=== PATIENT | female | born 1940 | race Caucasian/White ===

== ENCOUNTER → 2020-08-18 09:29 | Outpatient (BNVA) | payer MEDICARE, OTHER, SELFPAY | PROVIDERS: PCP Internal Medicine; Visit Provider Hospitalist | DX: J44.9 Chronic obstructive pulmonary disease, unspecified (principal); G47.33 Obstructive sleep apnea (adult) (pediatric); M54.5 Low back pain; Z99.89 Dependence on other enabling machines and devices | CPT/HCPCS: 99212 ==

== ENCOUNTER → 2021-08-19 08:59 | Outpatient (BNVA) | payer MEDICARE, OTHER, SELFPAY | PROVIDERS: PCP Internal Medicine; Visit Provider Hospitalist | DX: Z23 Encounter for immunization (principal); J44.9 Chronic obstructive pulmonary disease, unspecified; G47.33 Obstructive sleep apnea (adult) (pediatric); M54.50 Low back pain, unspecified; Z99.89 Dependence on other enabling machines and devices | CPT/HCPCS: 90471; 90732; 99212 ==

== ENCOUNTER → 2021-11-11 12:42 | Outpatient (BNVA) | payer MEDICARE, OTHER, SELFPAY | PROVIDERS: PCP Internal Medicine; Visit Provider Hospitalist | DX: R06.00 Dyspnea, unspecified (principal); J44.9 Chronic obstructive pulmonary disease, unspecified; G47.33 Obstructive sleep apnea (adult) (pediatric); M54.50 Low back pain, unspecified; Z99.89 Dependence on other enabling machines and devices | CPT/HCPCS: 94618; 99212 ==

== ENCOUNTER 2021-11-22 09:48 | Outpatient (REF) | payer MEDICARE, OTHER, SELFPAY ==
[2021-11-22 10:17] LABS: MANUAL DIFF FLAG NO
[2021-11-22 10:31] LABS: Basophils Percent Auto 0.8 % (0-2); Eosinophils Absolute Auto 0.4 X10*3/uL (0.0-0.4); Eosinophils Percent Auto 7.2 % (0-4); Hematocrit 38.8 % (37.0-47.0); Hemoglobin 12.3 g/dl (12.0-16.0); Imm Gran Abs Auto 0.01 X10*3/uL (0.00-0.03); Imm Gran Pct Auto 0.2 % (0.0-0.4); Lymphocytes Absolute Auto 0.9 X10*3/uL (1.2-4.9); Lymphocytes Percent Auto 18.8 % (20-40); Mean Corpuscular HGB Conc 31.7 g/dl (31.0-35.0); Mean Platelet Volume 10.9 fL (9.4-12.3); Monocytes Absolute Auto 0.3 X10*3/uL (0.1-1.2); Neutrophils Absolute Auto 3.2 x10*3/uL (2.0-8.3); Platelet Count 231 X10*3/uL (160-400); Red Blood Count 3.84 X10*6/uL (4.20-5.50); Red Cell Distribution Width 13.9 % (11.0-16.0); White Blood Count 4.9 X10*3/uL (4.8-10.8)
[2021-11-22 11:24] LABS: Erythrocyte Sedimentation Rate 10 MM/HR (0-20)
== END 2021-11-22 09:49 | disposition home or self-care (01) ==
LOC: HO.LAB 09:48
PROVIDERS: PCP Internal Medicine; Visit Provider Hospitalist
DX: R06.00 Dyspnea, unspecified (principal); Z91.09 Other allergy status, other than to drugs and biological substances
CPT/HCPCS: 36415; 82785; 85025; 85652; 86003

== ENCOUNTER 2021-12-03 09:43 | Outpatient (REF) | payer MEDICARE, OTHER, SELFPAY ==
--- NOTE | 2021-12-03 11:55 | PFT_ITS ---
Forced vital capacity 76%, FEV1 83%, FEF 25-75, 123% and MVV is 72%. Post bronchodilator therapy, there is no change. Total lung capacity 77%. Residual volume is 73%. Diffusion capacity 66%. CONCLUSION: There is evidence of mild restrictive pulmonary disorder. No obstructive airway disorder. No response to bronchodilator therapy. MD CEDRIC Davis/CECIL / [id number]
== END 2021-12-03 09:44 | disposition home or self-care (01) ==
LOC: HO.RESP 09:43
PROVIDERS: PCP Internal Medicine; Visit Provider Hospitalist
DX: J44.9 Chronic obstructive pulmonary disease, unspecified (principal)
CPT/HCPCS: 94060; 94727; 94729

== ENCOUNTER → 2021-12-10 13:11 | Outpatient (BNVA) | payer MEDICARE, OTHER, SELFPAY | PROVIDERS: PCP Internal Medicine; Visit Provider Hospitalist | DX: J44.9 Chronic obstructive pulmonary disease, unspecified (principal); R06.00 Dyspnea, unspecified; G47.33 Obstructive sleep apnea (adult) (pediatric); M54.50 Low back pain, unspecified; Z79.899 Other long term (current) drug therapy; Z99.89 Dependence on other enabling machines and devices | CPT/HCPCS: 99212 ==

== ENCOUNTER → 2022-02-04 14:32 | Outpatient (BNVA) | payer MEDICARE, OTHER, SELFPAY | PROVIDERS: PCP Internal Medicine; Visit Provider Hospitalist | DX: G47.33 Obstructive sleep apnea (adult) (pediatric) (principal); J44.9 Chronic obstructive pulmonary disease, unspecified; R06.00 Dyspnea, unspecified; M54.50 Low back pain, unspecified; Z79.899 Other long term (current) drug therapy; Z99.89 Dependence on other enabling machines and devices | CPT/HCPCS: 99212 ==

== ENCOUNTER 2022-02-09 14:33 | Outpatient (REF) | payer MEDICARE, OTHER, SELFPAY ==
--- NOTE | ~2022-02-09 | XR_ITS ---
EXAMINATION: XR chest 2V CLINICAL INFORMATION: Reason for Exam R06.00 - Dyspnea, unspecified COMPARISON: Chest radiograph 09/02/2013 TECHNIQUE: One view of the chest XR/XR chest 2V FINDINGS/IMPRESSION: * New trace right pleural effusion with right basilar opacities which may reflect atelectasis in the setting of effusion, alternatively aspiration or infection could essentially appear similar in the appropriate clinical setting. * Unchanged cardiomediastinal silhouette, unchanged. * No pneumothorax.
== END 2022-02-09 14:34 | disposition home or self-care (01) ==
LOC: HO.XRAY 14:33
PROVIDERS: PCP Internal Medicine; Visit Provider Hospitalist
DX: R06.00 Dyspnea, unspecified (principal)
CPT/HCPCS: 71046

== ENCOUNTER → 2022-02-28 14:45 | Outpatient (BNVA) | payer MEDICARE, OTHER, SELFPAY | PROVIDERS: PCP Internal Medicine; Visit Provider Internal Medicine | DX: S32.000A Wedge compression fracture of unspecified lumbar vertebra, initial encounter for closed fracture (principal) | CPT/HCPCS: 99202 ==

== ENCOUNTER 2022-03-15 09:47 | Outpatient (REF) | payer MEDICARE, OTHER, SELFPAY | END 2022-03-15 09:48 | disposition home or self-care (01) | LOC: HO.CT 09:47 | PROVIDERS: PCP Internal Medicine; Visit Provider Internal Medicine | DX: S32.000A Wedge compression fracture of unspecified lumbar vertebra, initial encounter for closed fracture (principal) | CPT/HCPCS: 72131 ==

== ENCOUNTER → 2022-03-28 11:32 | Outpatient (BNVA) | payer MEDICARE, OTHER, SELFPAY | PROVIDERS: PCP Internal Medicine; Visit Provider Internal Medicine | DX: S32.000A Wedge compression fracture of unspecified lumbar vertebra, initial encounter for closed fracture (principal); M47.816 Spondylosis without myelopathy or radiculopathy, lumbar region | CPT/HCPCS: 99212 ==

== ENCOUNTER 2022-04-21 12:01 | Outpatient (REF) | payer MEDICARE, OTHER, SELFPAY ==
--- NOTE | ~2022-04-21 | XR_ITS ---
EXAMINATION: XR CHEST CLINICAL INFORMATION: Atelectasis. COMPARISON: 04/11/2022 chest radiographs. TECHNIQUE: 2 views of the chest were obtained. FINDINGS: No significant abnormality is noted involving the heart, lungs, mediastinum, bony thorax or soft tissues. XR/XR chest 2V IMPRESSION: No acute cardiopulmonary process.
== END 2022-04-21 12:02 | disposition home or self-care (01) ==
LOC: HO.XRAY 12:01
PROVIDERS: PCP Internal Medicine; Visit Provider Hospitalist
DX: J90 Pleural effusion, not elsewhere classified (principal); J98.11 Atelectasis
CPT/HCPCS: 71046

== ENCOUNTER 2022-06-01 06:08 | Outpatient (REF) | payer MEDICARE, OTHER, SELFPAY ==
--- NOTE | ~2022-06-01 | FL_ITS ---
EXAMINATION: XR FLUOROSCOPY WITH IMAGES CLINICAL INFORMATION: M47.816 - Spondylosis without myelopathy or radiculopathy, lumbar region COMPARISON: Fluoroscopy CT lumbar spine 03/15/2022 TECHNIQUE: Fluoroscopy Supervised By: Dr. Jose Roberto Ash. Fluoroscopy Time: 0.1 minutes. Cumulative Dose: 2.84 mGy. DAP: 0.451 Gycm2. Images: 2. FINDINGS: There are spinal needles overlying the outer left L1, L2, and L3 neural foramen. There is contrast seen in the respective nerve sheaths. Some early transforaminal epidural extension is suggested. No visible vascular communication. There are degenerative changes with multilevel vertebral spurring. Old superior endplate depressions are again noted at L1 and L2. FL/FL guidance in treatment room IMPRESSION: Fluoroscopy for pain management procedures.
== END 2022-06-01 06:09 | disposition home or self-care (01) ==
LOC: CF 06:08
PROVIDERS: Visit Provider Internal Medicine
DX: M47.816 Spondylosis without myelopathy or radiculopathy, lumbar region (principal); S32.000A Wedge compression fracture of unspecified lumbar vertebra, initial encounter for closed fracture
CPT/HCPCS: 64493; 64494; J3301; Q9965; Q9967

== ENCOUNTER → 2022-06-02 13:04 | Outpatient (BNVA) | payer MEDICARE, OTHER, SELFPAY | PROVIDERS: PCP Internal Medicine; Visit Provider Hospitalist | DX: J44.9 Chronic obstructive pulmonary disease, unspecified (principal); J82.83 Eosinophilic asthma; J90 Pleural effusion, not elsewhere classified; M54.50 Low back pain, unspecified; G47.33 Obstructive sleep apnea (adult) (pediatric); Z99.89 Dependence on other enabling machines and devices | CPT/HCPCS: 99212 ==

== ENCOUNTER 2022-06-08 06:14 | Outpatient (REF) | payer MEDICARE, OTHER, SELFPAY ==
--- NOTE | ~2022-06-08 | FL_ITS ---
EXAMINATION: XR FLUOROSCOPY WITH IMAGES CLINICAL INFORMATION: Spondylosis without myelopathy or radiculopathy. COMPARISON: None. TECHNIQUE: Fluoroscopy Supervised By: Daphnie Smith. Fluoroscopy Time: 0.1. Cumulative Dose: 2.48 mGy. DAP: 0.451 Gy-cm2. Images: 2. FINDINGS: There are 2 digital images obtained revealing needle positioned posterior left T11-T12, T12-L1, L1-L2, L2-L3, L3-L4 and L4-L5 facet joints with contrast opacifying the soft tissues. Mild loss of L1 endplate height is noted. Minimal loss of T12 superior endplate height is also seen. The L1, L2 and L3 vertebral bodies are normal height. Mild ventral and lateral enthesophytes are seen along the upper lumbar spine. No gross lytic or sclerotic process seen. FL/FL guidance in treatment room IMPRESSION: Fluoroscopy was provided to the referring physician during pain management.
== END 2022-06-08 06:15 | disposition home or self-care (01) ==
LOC: CF 06:14
PROVIDERS: Visit Provider Internal Medicine
DX: M47.816 Spondylosis without myelopathy or radiculopathy, lumbar region (principal)
CPT/HCPCS: 64493; 64494

== ENCOUNTER → 2022-06-10 12:01 | Outpatient (BNVA) | payer MEDICARE, OTHER, SELFPAY | PROVIDERS: PCP Internal Medicine; Visit Provider Internal Medicine | DX: M47.816 Spondylosis without myelopathy or radiculopathy, lumbar region (principal); S32.000D Wedge compression fracture of unspecified lumbar vertebra, subsequent encounter for fracture with routine healing | CPT/HCPCS: Q3014 ==

== ENCOUNTER 2022-07-06 09:18 | Day surgery (SDC) | payer MEDICARE, OTHER, SELFPAY ==
--- NOTE | ~2022-07-06 | FL_ITS ---
EXAMINATION: XR FLUOROSCOPY WITH IMAGES CLINICAL INFORMATION: Medial branch block radiofrequency. COMPARISON: CT lumbar spine 03/15/2022. TECHNIQUE: Fluoroscopy Supervised By: Dr. Jose Roberto Ash. Fluoroscopy Time: 0.3 minutes. Cumulative Dose: 12.9 mGy. DAP: 1.74 Gycm2. Images: 3. FINDINGS: On the first image, lateral view, there is compression fracture deformity L1 and L2 vertebrae. There are needles positioned posterior to left T12, L1 and L2 vertebrae for pain management. FL/FL guidance in OR IMPRESSION: 1. Fluoroscopy was provided to referring physician for pain management. 2. Compression fracture with superior endplate deformity L1 and L2 vertebrae.
[2022-07-06 09:46] VITALS: BMI 32.2
--- NOTE | 2022-07-06 10:31 | MHC.SHP ---
Pre-Procedural Eval Section A Date of Service: 07/06/22 The patient is an INPATIENT: No Changes since office visit: Yes Patient answered all questions The History & Physical has been completed within 30 days and I have reviewed it.: No Section B Chief Complaint: Spondylosis without myelopathy or radiculopathy Relevant Family History (Specify if Yes): No Relevant Social History: None Present Medications: see Short Stay Collaborative assessment Medical History: No relevant PMH History of Previous Operations: No relevant previous surgery Allergies: Allergies Allergy/AdvReac Type Severity Reaction Status Date / Time seasonal allergies Allergy Severe Rash and Uncoded 06/02/22 13:19 Hives Review of Systems Sugical H&P ROS: Negative: Constitution, Cardiovascular and Respiratory Exam Surgical H&P Exam: Normal: HEENT, Normal: Heart and Normal: Lungs Plan Diagnosis/Plan: Unchanged I have reviewed the history and physical and performed a pertinent physical examination on my patient. No changes have occurred unless specified. Time Spent With Patient Time: Total time managing care of this patient today ____ minutes.
--- NOTE | 2022-07-06 10:32 | P.BOP_ITS ---
Brief Operative Note Date of Service: 07/06/22 Pre-op diagnosis: Lumbar spondylosis Post-op diagnosis: same Procedure: Left T12, L1, L2 medial branches radiofrequency ablation Implants: None Surgeon: Jose Roberto Ash MD Anesthesia: local Was an Machine Gunner used for this Procedure?: No Estimated blood loss (mL): 2 Pathology: none sent Condition: stable Disposition: same day
--- NOTE | 2022-07-06 10:33 | P.OP_ITS ---
Operative Note Operative Note Date of Service: 07/06/22 Narrative: Radiofrequency lesioning medial branch nerves, left T12, L1, L2 medial branches (2 levels, 3 nerves) After obtaining written consent, pre-procedure blood pressure and heart rate were stable and recorded in the nursing record. The patient was placed in the prone position. The lumbar area was prepped with chloraprep and draped in sterile fashion. The skin over the target for each medial branch nerve was ane sthetized with 0.5% lidocaine. An 18 gauge radiofrequency cannula was advanced to each target site under fluoroscopic guidance. No paresthesias were elicited with needle placement and aspiration was negative for heme and CSF. Impedences were verified under 600 ohms. Sensory testing (50 Hz) and then motor testing (2 Hz) confirmed needle placement at each site within the appropriate voltage thresholds. Each site was injected with 0.5 ml 2% preservative-free lidocaine. Radiofrequency lesioning was performed for 90 seconds at 80 deg Celcius. Each site was then injected with 0.5ml 0.5% ropivacaine. The needles were removed, skin cleansed and a sterile bandage was applied. The patient tolerated the procedure well and no complications were encountered. Following the procedure the patient's vital signs were stable. The patient was discharged home in good condition with post-procedural instructions. Time Out: Immediately prior to the procedure, the following was verbally confirmed that there is a signed consent form and that the correct patient, planned procedure, site and side are consistent with documentation and that necessary equipment and/or blood products are available prior to the start of the case. Complications: none EBL: <2 cc
[2022-07-06 11:27] VITALS: BP 155/88; PULSE 57; RESP 18; TEMP 36.4; O2SAT 98
== END 2022-07-06 11:44 | disposition home or self-care (01) ==
PROVIDERS: PCP Internal Medicine; Visit Provider Internal Medicine
PROC: (CPT 64635; principal; 2022-07-06 10:40)
DX: M47.816 Spondylosis without myelopathy or radiculopathy, lumbar region (principal); S32.000A Wedge compression fracture of unspecified lumbar vertebra, initial encounter for closed fracture; X58.XXXA Exposure to other specified factors, initial encounter; Y93.9 Activity, unspecified; Y92.9 Unspecified place or not applicable; Y99.8 Other external cause status; J44.9 Chronic obstructive pulmonary disease, unspecified; G47.33 Obstructive sleep apnea (adult) (pediatric)
CPT/HCPCS: 64635; 64636; J2795; J3301; Q9965

== ENCOUNTER → 2022-08-05 08:12 | Outpatient (BNVA) | payer MEDICARE, OTHER, SELFPAY | PROVIDERS: PCP Internal Medicine; Visit Provider Internal Medicine | DX: M47.816 Spondylosis without myelopathy or radiculopathy, lumbar region (principal) | CPT/HCPCS: 99212 ==

== ENCOUNTER 2022-09-27 11:00 | Outpatient (RCR) | payer MEDICARE, OTHER, SELFPAY ==
--- NOTE | 2022-10-11 13:29 | MHC.PT.DC ---
[facility] [place] Office [place] Office [place] Office [address] Isamar Bradshaw [address] [phone] F: [phone] F: [phone] F: [phone] F: [phone] Physical Therapy Discharge Report Diagnosis: LOW BACK PAIN (KP) Date of Surgery: Date of Evaluation: 09/08/22 Date of Discharge: 10/01/22 Treatments to Date: 7 Cancellations to Date: 0 No Shows to Date: 0 Discharge Status: Achieved Goals Improved Function Discharge Summary: 09/27 pt doing well with [facility] program. Pt met her STGs , Pt is going on vacation. request D/C today to ex on her own. Electronically signed by: Diamond Short PT, DPT Please sign and return to therapist. Thank you for your referral.
== END 2022-10-11 13:29 | disposition home or self-care (01) ==
LOC: HO.PT 11:00
PROVIDERS: PCP Internal Medicine; Visit Provider Internal Medicine
DX: M47.816 Spondylosis without myelopathy or radiculopathy, lumbar region (principal)
CPT/HCPCS: 97110; 97161; 97162

== ENCOUNTER 2022-10-20 10:45 | Outpatient (REF) | payer MEDICARE, OTHER, SELFPAY ==
--- NOTE | 2022-10-20 11:00 | PFT_ITS ---
INDICATION: Dyspnea. SPIROMETRY: The FEV1 to FVC of 78% with an FEV1 of 1.28 L, which is 81% predicted and an FVC of 1.64 L, which is 76% predicted. No significant response to bronchodilator is noted. Maximum voluntary ventilation 75% predicted. LUNG VOLUMES: Total lung capacity 79% predicted with an expiratory reserve volume of 12% predicted. DIFFUSION CAPACITY: DLCO 78% predicted. COMPARISONS: PFTs from December 03, 2021. INTERPRETATION: No obstructive ventilatory defects. No significant response to bronchodilator is noted. There is mild decrease in maximum voluntary ventilation likely secondary to deconditioning. The patient also has ventricular ventilatory defect consistent with mild restrictive lung disease probably due to the elevated BMI. The expiratory reserve volume is significantly decreased. The patient does have a mild diffusion impairment. When compared to November 2021, there is no significant change in the FVC, trend decrease in the FEV1, has slight increase in the total lung capacity and significant improvement in diffusion capacity. Clinical correlation warranted. MD BRUCE Navas/MODL / [id number]
== END 2022-10-20 10:46 | disposition home or self-care (01) ==
LOC: HO.RESP 10:45
PROVIDERS: PCP Internal Medicine; Visit Provider Hospitalist
DX: J44.9 Chronic obstructive pulmonary disease, unspecified (principal)
CPT/HCPCS: 94010; 94727; 94729

== ENCOUNTER → 2022-11-01 08:13 | Outpatient (BNVA) | payer MEDICARE, OTHER, SELFPAY | PROVIDERS: PCP Internal Medicine; Visit Provider Hospitalist | DX: J45.909 Unspecified asthma, uncomplicated (principal); R06.00 Dyspnea, unspecified; G47.33 Obstructive sleep apnea (adult) (pediatric); M54.50 Low back pain, unspecified; Z99.89 Dependence on other enabling machines and devices | CPT/HCPCS: 99212 ==

== ENCOUNTER → 2022-12-01 13:05 | Outpatient (BNVA) | payer MEDICARE, OTHER, SELFPAY | PROVIDERS: PCP Internal Medicine; Visit Provider Hospitalist | DX: J44.9 Chronic obstructive pulmonary disease, unspecified (principal); R06.00 Dyspnea, unspecified; G47.33 Obstructive sleep apnea (adult) (pediatric); M54.50 Low back pain, unspecified; Z99.89 Dependence on other enabling machines and devices | CPT/HCPCS: 99212 ==

== ENCOUNTER → 2022-12-12 10:59 | Outpatient (BNVA) | payer MEDICARE, OTHER, SELFPAY | PROVIDERS: PCP Internal Medicine; Visit Provider Internal Medicine | DX: M47.816 Spondylosis without myelopathy or radiculopathy, lumbar region (principal); M54.50 Low back pain, unspecified; G89.29 Other chronic pain | CPT/HCPCS: 99212 ==

== ENCOUNTER 2023-01-20 09:37 | Day surgery (SDC) | payer MEDICARE, OTHER, SELFPAY ==
--- NOTE | ~2023-01-20 | FL_ITS ---
EXAMINATION: XR FLUOROSCOPY WITH IMAGES CLINICAL INFORMATION: Radiological assistance for injection COMPARISON: None available. TECHNIQUE: Fluoroscopy Supervised By: Dr. Jose Roberto Ash. Fluoroscopy Time: 0.3 minutes. Cumulative Dose: 6.58 mGy. DAP: 1.08 Gycm2. Images: 2. FINDINGS: 2 images obtained for interpretation and revealed on the first image pointing medial indicating pedicle of L1 on the left second image limited due to overlapping objects but L1 vertebral body revealed mild compression deformity needle is pointing toward the L1. FL/FL guidance in OR IMPRESSION: Fluoroscopic assistance or consolidation of L1 vertebral body.
[2023-01-20 10:16] VITALS: BP 134/55; PULSE 64; RESP 18; TEMP 36.4; O2SAT 97
--- NOTE | 2023-01-20 11:28 | MHC.SHP ---
Pre-Procedural Eval Section A Date of Service: 01/20/23 The patient is an INPATIENT: No Changes since office visit: Yes Patient answered all questions The History & Physical has been completed within 30 days and I have reviewed it.: No Section B Chief Complaint: Low back pain, intractable Relevant Family History (Specify if Yes): No Relevant Social History: None Present Medications: see Short Stay Collaborative assessment Medical History: No relevant PMH History of Previous Operations: No relevant previous surgery Allergies: Allergies Allergy/AdvReac Type Severity Reaction Status Date / Time seasonal allergies Allergy Severe Rash and Uncoded 12/12/22 11:04 Hives Review of Systems Sugical H&P ROS: Negative: Constitution, Cardiovascular and Respiratory Exam Surgical H&P Exam: Normal: HEENT, Normal: Heart and Normal: Lungs Plan Diagnosis/Plan: Unchanged I have reviewed the history and physical and performed a pertinent physical examination on my patient. No changes have occurred unless specified. Proceed with left T12 vs. L1 medial branch stimulator placement. Time Spent With Patient Time: Total time managing care of this patient today ____ minutes.
--- NOTE | 2023-01-20 11:31 | P.BOP_ITS ---
Brief Operative Note Date of Service: 01/20/23 Pre-op diagnosis: Intractable back pain, lumbar spondylosis Post-op diagnosis: same Procedure: Left L1 medial branch nerve stimulator placement Implants: Sprint temporary PNS system Surgeon: Jose Roberto Ash MD Anesthesia: local Was an Packaging Tech used for this Procedure?: No Estimated blood loss (mL): 3 Pathology: none sent Condition: stable Disposition: same day
--- NOTE | 2023-01-20 11:32 | W.PM.OPN ---
Operative Note Operative Note Date of Service: 01/20/23 Narrative: Lumbar Medial Branch Nerve Stimulation Lead Placement, SPR (Sprint) System, Left L1 ? After the risks, benefits and alternatives were discussed with the patient and informed consent was obtained, patient was placed in the prone position and padded to foster comfort. The skin overlying the lumbosacral spine was prepped and draped in sterile fashion. Fluoroscopy was used to identify the spinous process and lamina in the center of the patient?s region of pain. After identifying and marking the intended target along the course of the medial branch nerve, the skin around the planned entry point and the subcutaneous tissues were injected with lidocaine 1%. An introducer needle and stimulating probe were assembled, inserted and advanced along the intended course of the medial branch nerve as it traverses the lamina medial and inferior to the zygapophyseal joint, taking care to maintain the proper depth of insertion as the introducer is advanced under fluoroscopic guidance. The introducer needle was delivered to a location in proximity to the nerve. Multiple stimulation parameters were used to deliver stimulation to the target medial branch nerve in concert with stimulating at multiple positions around the nerve. Nerve target acquisition was confirmed noting generation of paresthesias in the paravertebral regions corresponding to the level being stimulated. Various electrical parameter combinations were tested, and the lead location was adjusted (physically relocated) until the patient indicated paresthesia/muscle tension overlapping the distribution of the patient?s typical region of pain. The stimulating probe was removed from the introducer and a percutaneous lead was guided through the needle and delivered to a location in similar proximity to the nerve. Final location was verified with electrical stimulation and documented with fluoroscopy. The introducer needle was removed, and the exposed end of the percutaneous lead was attached to an external stimulator unit. Various electrical parameter combinations were again tested until the patient indicated paresthesia or muscle tension overlapping the distribution of the patient?s typical region of pain. After confirming that lead impedance was in the normal range, the external unit was detached, the needle was removed, and the lead was anchored at the skin. The lead was threaded into the connector block and electrical continuity and desired patient response was confirmed. The connector block was attached to the external stimulator unit. The site was covered with a sterile occlusive dressing. The patient was observed for stability of vital signs and comfort.
[2023-01-20 11:33] VITALS: BP 134/56; PULSE 61; RESP 18; TEMP 36.4; O2SAT 97
== END 2023-01-20 12:20 | disposition home or self-care (01) ==
PROVIDERS: PCP Internal Medicine; Visit Provider Internal Medicine
PROC: (CPT 64555; principal; 2023-01-20 11:10)
DX: M47.816 Spondylosis without myelopathy or radiculopathy, lumbar region (principal); G89.29 Other chronic pain; M54.50 Low back pain, unspecified; J44.9 Chronic obstructive pulmonary disease, unspecified
CPT/HCPCS: 64555; C1778

== ENCOUNTER → 2023-01-20 09:37 | Outpatient (BNV) | payer MEDICARE, OTHER, SELFPAY | PROVIDERS: PCP Internal Medicine; Visit Provider Internal Medicine | DX: M54.50 Low back pain, unspecified (principal) | CPT/HCPCS: 64555 ==

== ENCOUNTER → 2023-01-27 11:30 | Outpatient (BNVA) | payer MEDICARE, OTHER, SELFPAY | PROVIDERS: PCP Internal Medicine; Visit Provider Internal Medicine ==

== ENCOUNTER → 2023-03-24 08:54 | Outpatient (BNVA) | payer MEDICARE, OTHER, SELFPAY | PROVIDERS: PCP Internal Medicine; Visit Provider Internal Medicine ==

== ENCOUNTER 2023-04-10 07:49 | Outpatient (AMB) | payer MEDICARE, OTHER, SELFPAY ==
[2023-04-10 07:57] VITALS: PULSE 69; RESP 12; O2SAT 96; BMI 34.2
--- NOTE | 2023-04-10 07:57 | MHC.OFFVIS ---
Intake Vital Signs 04/10/23 07:57 Height 5 ft 3 in Weight 193 lb BMI 34.2 Blood Pressure Location Lt brachial Position Sitting Respiration 12 Pulse 69 Pulse Source Pulse Oximeter Pulse Oximetry (%) 96 Oxygen Delivery Method Room Air Intake Visit Reasons: Returning Pain s/p Sprint Removal /confirmed Allergies seasonal allergies Allergy (Severe, Uncoded 04/10/23 07:59) Rash and Hives Medication List - Last Reconciled 04/10/23 by Ludy Vázquez LPN albuterol sulfate 90 mcg/actuation 0 mcg inhalation amlodipine 10 mg PO DAILY anastrozole 1 mg PO DAILY aspirin (Adult Low Dose Aspirin) 81 mg PO DAILY carvedilol 6.25 mg PO BID chlorthalidone 25 mg PO DAILY clobetasol 0.05% 1 appl topical DAILY CPAP (CPAP Machine/Device) As directed donepezil 5 mg PO BEDTIME ezetimibe 10 mg PO DAILY seieeqchqdt-lrxebiakz-atnfuiss 100-62.5-25 mcg (Trelegy Ellipta) 1 inh inhalation DAILY 90 days insulin aspart U-100 units subcut insulin glargine units subcut lactobacillus combination no.9 (Adult 50 Plus Probiotic) 4,000 mmu cells PO DAILY lisinopril 20 mg PO BID montelukast (Singulair) 10 mg PO BEDTIME 90 days pravastatin 40 mg PO DAILY HPI Returning Pain s/p Sprint Removal /confirmed HPI Details 83-year-old female who presents today to the office for an evaluation of pain status post sprint removal. The patient reports complete pain relief during the time that the stimulator was in place. Unfortunately her pain returned shortly after the removal of the device. She describes her pain as intermittent in nature. She reports feeling pain with prolonged standing or activities. She denies any pain from prolonged sitting. She had no pain during the trial of the lumbar MBB nerve stimulator and the post-RFA procedure. The last RFA procedure provided about 90% relief for 5 months. She has arthritis in her back. She takes two tablets of Tylenol for pain management. Past Procedures: 01/20/23: Lumbar Medial Branch Nerve Stimulation Lead Placement, SPR (Sprint) System, Left L1: Excellent relief while the device was in place 07/06/22: Left A16-[id number] MB RFA: 90% relief for about six months. 06/10/22: Left P59-O5-H0 MBB ? 100% relief. 06/01/22: Left N86-I8-X3 MBB ? 100% relief. [facility] Medical History (Updated 12/12/22 @ 12:36 by Jose Roberto Ash MD) Pleural effusion on right Atelectasis Dyspnea Hoarseness Back pain JAYLA on CPAP Asthma-COPD overlap syndrome Social History (Updated 08/19/21 @ 09:09 by Yolanda Fernandez [facility]) Patient Tobacco Use Status: Never used Tobacco Review of Systems Const All systems reviewed & are unremarkable except as noted in HPI and below Physical Exam Vital Signs: Last Vital Signs Pulse 69 04/10/23 07:57 Resp 12 04/10/23 07:57 Pulse Ox 96 04/10/23 07:57 Oxygen Delivery Method Room Air 04/10/23 07:57 BMI result Body Mass Index 34.2 General: Appears afebrile. Alert and oriented. Mood and affect appropriate. Follows and participates in conversation appropriately. Respiratory effort is unlabored. Able to transition from sit to stand unassisted. Ambulates with bilaterally normal heel strike and toe off. Results Reviewed Results Reviewed: No imaging is available for review. Assessment & Plan Assessment & Plan (1) Lumbar spondylosis: Code(s): M47.816 - Spondylosis without myelopathy or radiculopathy, lumbar region (2) Lumbar compression fracture: Code(s): S32.000A - Wedge compression fracture of unspecified lumbar vertebra, initial encounter for closed fracture Plan Discussed repeat RFA vs. permanent nerve stimulator as a possible treatment options. Will schedule her for a left T12, L1, L2 medial branch nerves radiofrequency ablation under local anesthesia. Discussed the risks and benefits of the procedure with the patient in detail. All questions were answered. The patient is on board with the plan. If the RFA is unable to provide long-term relief, we can consider a permanent nerve stimulator implant in the future. Justification for interventional therapy: ? Patient with average pain > 6/10 ? Patient has exhausted conservative therapy including physical therapy, oral medication ? Previous RFA provided 90% relief for five months Scribed for Dr. Ash by Manolo Watts, esthetician and manager medical spa, on 04/10/2023. I, Dr. Ash, have personally reviewed and agree with the information entered by the scribe. Coding Level of Care Code Est Pt Level 3 (72375) Diagnoses Lumbar spondylosis M47.816 Lumbar compression fracture S32.000A
== END 2023-04-10 08:31 | disposition home or self-care (01) ==
PROVIDERS: PCP Internal Medicine; Visit Provider Internal Medicine
DX: M47.816 Spondylosis without myelopathy or radiculopathy, lumbar region (principal); S32.000A Wedge compression fracture of unspecified lumbar vertebra, initial encounter for closed fracture
CPT/HCPCS: 99213

== ENCOUNTER → 2023-04-10 07:49 | Outpatient (BNVA) | payer MEDICARE, OTHER, SELFPAY | PROVIDERS: PCP Internal Medicine; Visit Provider Internal Medicine | DX: M47.816 Spondylosis without myelopathy or radiculopathy, lumbar region (principal); S32.000A Wedge compression fracture of unspecified lumbar vertebra, initial encounter for closed fracture; X58.XXXA Exposure to other specified factors, initial encounter; Y93.9 Activity, unspecified; Y92.9 Unspecified place or not applicable; Y99.9 Unspecified external cause status | CPT/HCPCS: 99212 ==

== ENCOUNTER 2023-05-09 09:39 | Outpatient (AMB) | payer MEDICARE, OTHER, SELFPAY ==
[2023-05-09 09:42] VITALS: BP 128/60; RESP 12; BMI 34.7
--- NOTE | 2023-05-09 09:42 | MHC.OFFVIS ---
Intake Vital Signs 05/09/23 09:42 Height 5 ft 3 in Weight 196 lb BMI 34.7 BP 128/60 Blood Pressure Location Lt brachial Position Sitting Respiration 12 Pulse Source Pulse Oximeter Oxygen Delivery Method Room Air Intake Visit Reasons: COPD Allergies seasonal allergies Allergy (Severe, Uncoded 05/09/23 09:44) Rash and Hives Medication List - Last Reconciled 05/09/23 by Ludy Vázquez LPN albuterol sulfate 90 mcg/actuation 2 inhalations inhalation Q6-8H PRN amlodipine 10 mg PO DAILY anastrozole 1 mg PO DAILY aspirin (Adult Low Dose Aspirin) 81 mg PO DAILY carvedilol 6.25 mg PO BID chlorthalidone 25 mg PO DAILY clobetasol 0.05% 1 appl topical DAILY CPAP (CPAP Machine/Device) As directed donepezil 5 mg PO BEDTIME ezetimibe 10 mg PO DAILY aojreogcjwk-atqtiavvq-hnxdyerg 100-62.5-25 mcg (Trelegy Ellipta) 1 inh inhalation DAILY 90 days insulin aspart U-100 units subcut insulin glargine units subcut lactobacillus combination no.9 (Adult 50 Plus Probiotic) 4,000 mmu cells PO DAILY lisinopril 20 mg PO BID montelukast (Singulair) 10 mg PO BEDTIME 90 days pravastatin 40 mg PO DAILY HPI HPI Comments History of Present Illness Details Patient is a 83 y/o woman with a history of asthma in addition to obstructive sleep apnea. She continues uses CPAP therapy with good effect. The CPAP therapy has been affected and beneficial. She does use it for more than 4 hours night. No issues with supplies and no issues with her CPAP this time. However, she started to have worsening dyspnea on exertion. Especially when she goes outside. Moderate in severity. Usually improves with rest or going side. She does exercise regularly at the gym the [employer] program. She has been using Breo. This has been helpful. But still having symptoms. 08/18/2020The patient is here for pulmonary follow-up visit. The patient overall is doing very well. She has been using the CPAP. The CPAP therapy continues to be affecting beneficial. She does use it all night for more than 4 hours a night. She does have a fullface mask and she feels like is very comfortable for her. In the meantime shortness of breath has been better. However, she did have a fall in the summertime resulting in significant back pain and potential compression fracture. More recently she had another fall that she is not aware of how it happened but, she did not lose consciousness. It also hit the same area and now she is having significant back pain. Moderate to severe. The patient states that this morning at 3:00 a.m. in the morning the pain woke her up with significant discomfort and she was actually tearing. I did offer her to get an x-ray and also lumbar x-ray but she does not want to get 1 at this time. I did advise her to call her primary care doctor as soon as possible to further address this issue. She is walking comfortably she denies any radiculopathies. Her breathing has been stable. She has gained some weight after the pandemic started. She has not been going to the gym but she used to 3 times a week. Now with the back pain she has a hard time considering exercising. She continues in the a with the [employer] this has been helpful. 11/01/2022 for the patient is here for pulmonary follow-up visit. Overall she is doing okay. She went on a trip to the nebul[place] breathing is a lot better. She was able to go to the [place] and do plan to walking. However, when she got back to the [place] her breathing again because he a little more labored. She has been using the Trelegy that has been helpful. Although she has been noticing increasing hoarseness. She does take the high-dose Trelegy. We talked about decreasing the amount to steroid. When she got back she was wondering if she could have some allergies that was affecting her breathing. We had done some allergy testing in the past demonstrating an elevated IgE level of 214 in addition to an elevated eosinophil level. Explained to her that we do not know the actual allergens but she is definitely allergic to something in the environment. The only way to probably find out will be with allergy scratch testing. The patient in the meantime will be started on Singulair. If that is not effective she can always add antihistamines as needed. Will also decrease the amount of Trelegy steroid to try to improve her hoarseness. She continues with hoarseness then we may have to switch her to an HFA with spacer. The patient continues use her CPAP. CPAP therapy continues to be affecting beneficial she does use more than 4 hours a night. The patient does use a cane and she has had increasing shortness of breath specially in [place] so therefore it is reasonable for her to get a placard. 12/01/2022 the patient is here for pulmonary follow-up visit. She had worsening respiratory symptoms. She was given a Z-Rakesh and also prednisone and did improve her cough overall. She still complains of some shortness of breath and intermittent cough. The cough is nonproductive in nature. She does feel the azithromycin was effective for her. She went down on the Trelegy recently to 100 in view of the hoarseness. I am hopeful that this will help her hoarseness. In the meantime a since the patient responded to the azithromycin we can try her on a chronic macrolide therapy for about a month to see if this provides her some relief and also Julissa Vogt with good Rx card in order for her to be able to get off cough suppressant as needed. She continues uses CPAP at nighttime. The CPAP therapy continues to be affecting beneficial. She does use it for more than 4 hours a night. She will continue with the singular also for her underlying allergies. 05/09/2023 the patient is here for pulmonary follow-up visit. The patient is feeling a lot better. Her respiratory status is back to baseline. She is off the azithromycin. She did tolerate the lower dose Trelegy. The patient has not had to use her rescue inhaler. She she has not required any additional prednisone or antibiotics. She has been vaccinated. I did encourage her to get RHC vaccine. The still low and she has not gotten. She will will talk to her primary care doctor as well. She in the meantime she continues use her CPAP therapy. The therapy has been affecting beneficial. She does have a fullface mask. Will send supplies through [facility] for her to continue to get supplies readily. The patient will follow-up in the fall. If she has any new or concerning issues she will call for an earlier assessment. [facility] Medical History (Updated 05/09/23 @ 09:47 by Dillan Hayes MD) Pleural effusion on right Atelectasis Dyspnea Hoarseness Back pain JYALA on CPAP Asthma-COPD overlap syndrome (Updated 08/19/21 @ 09:09 by DENIS Cline) Patient Tobacco Use Status: Never used Tobacco Review of Systems Const Denies fatigue and Denies night sweats ENT Denies change in voice, Denies lip swelling, Denies mouth pain, Reports nasal congestion, Reports nasal discharge and Denies tongue swelling Card Denies chest pain and Denies dyspnea on exertion Resp Reports cough and Denies dyspnea on exertion GI Denies abdominal pain Musc Denies no additional complaints and Reports back pain Neuro Denies Neuro-related abnormal movements Psych Denies no additional complaints Endo Denies fatigue Tae/Lymph Denies easy bleeding and Denies lymphadenopathy Aller/Immun Denies lip swelling and Denies tongue swelling Physical Exam Vital Signs: Last Vital Signs Resp 12 05/09/23 09:42 BP 128/60 05/09/23 09:42 Oxygen Delivery Method Room Air 05/09/23 09:42 BMI result Body Mass Index 34.7 Const General: alert HEENT General nose exam: Abnormal external nose present and Nasal discharge present Neck Neck: Yes normal visual inspection, Yes full ROM and Yes no lymphadenopathy Chest Chest palpation & inspection: normal inspection of the chest Resp Auscultation: clear to auscultation bilaterally, no crackles, no rhonchi and no wheezes Cardio Rate: regular rate Rhythm: regular rhythm Heart sounds: S1 normal heart sound present and S2 normal heart sound present GI Palpation (GI): Soft to palpation and nontender Auscultation: normal bowel sounds General: Yes no CVA tenderness Back/Spine/Pelvis Back: no CVA tenderness Skin General skin exam: rashes and/or lesions noted Assessment & Plan Assessment & Plan (1) Asthma-COPD overlap syndrome: Comment: with eosiniphilia Code(s): J44.9 - Chronic obstructive pulmonary disease, unspecified (2) JAYLA on CPAP: Code(s): G47.33 - Obstructive sleep apnea (adult) (pediatric); Z99.89 - Dependence on other enabling machines and devices Plan Continue [facility]AP therapy, [facility] continue Trelegy 100 Benzonate as needed continue Singulair KELI as needed F/U 10-12 months Coding Level of Care Code Est Pt Level 4 (26878) Diagnoses Asthma-COPD overlap syndrome J44.9 JAYLA on CPAP G47.33; Z99.89 Time Spent (min) 16
== END 2023-05-09 10:10 | disposition home or self-care (01) ==
PROVIDERS: PCP Internal Medicine; Visit Provider Hospitalist
DX: J44.9 Chronic obstructive pulmonary disease, unspecified (principal); G47.33 Obstructive sleep apnea (adult) (pediatric); Z99.89 Dependence on other enabling machines and devices
CPT/HCPCS: 99214

== ENCOUNTER → 2023-05-09 09:39 | Outpatient (BNVA) | payer MEDICARE, OTHER, SELFPAY | PROVIDERS: PCP Internal Medicine; Visit Provider Hospitalist | DX: J44.9 Chronic obstructive pulmonary disease, unspecified (principal); G47.33 Obstructive sleep apnea (adult) (pediatric); Z99.89 Dependence on other enabling machines and devices | CPT/HCPCS: 99212 ==

== ENCOUNTER 2023-05-10 06:15 | Day surgery (SDC) | payer MEDICARE, OTHER, SELFPAY ==
--- NOTE | ~2023-05-10 | FL_ITS ---
EXAMINATION: XR FLUOROSCOPY WITH IMAGES CLINICAL INFORMATION: SPRINT thoracic W95-[id number] RFA, left. COMPARISON: None available. TECHNIQUE: Fluoroscopy Supervised By: Dr. Jose Roberto Ash. Fluoroscopy Time: 0.3 minutes. Cumulative Dose: 6.58 mGy. DAP: 0.874 Gycm2. Images: 5. FINDINGS: There are probes or leads adjacent to the superior pedicles of the left lateral L1, L2 and L3 vertebrae FL/FL guidance in OR IMPRESSION: Fluoroscopy guidance for pain management procedure
[2023-05-10 08:14] VITALS: BMI 34.6
--- NOTE | 2023-05-10 08:55 | P.BOP_ITS ---
Brief Operative Note Date of Service: 05/10/23 Pre-op diagnosis: Lumbar spondylosis Post-op diagnosis: same Procedure: T12, L1, L2 medial branch radiofrequency lesioning Surgeon: Jose Roberto Ash MD Anesthesia: local Was an Contact And Service Clerks Supervisor used for this Procedure?: No Estimated blood loss (mL): 1 Pathology: none sent Condition: stable Disposition: same day
--- NOTE | 2023-05-10 08:55 | MHC.SHP ---
Pre-Procedural Eval Section A Date of Service: 05/10/23 The patient is an INPATIENT: No Changes since office visit: Yes Patient answered all questions The History & Physical has been completed within 30 days and I have reviewed it.: No Section B Chief Complaint: Spondylosis without myelopathy or radiculopathy, Relevant Family History (Specify if Yes): No Relevant Social History: None Present Medications: see Short Stay Collaborative assessment Medical History: No relevant PMH History of Previous Operations: No relevant previous surgery Allergies: Allergies Allergy/AdvReac Type Severity Reaction Status Date / Time seasonal allergies Allergy Severe Rash and Uncoded 05/10/23 08:16 Hives Review of Systems Sugical H&P ROS: Negative: Constitution, Cardiovascular and Respiratory Exam Surgical H&P Exam: Normal: HEENT, Normal: Heart and Normal: Lungs Plan Diagnosis/Plan: Unchanged I have reviewed the history and physical and performed a pertinent physical examination on my patient. No changes have occurred unless specified. Time Spent With Patient Time: Total time managing care of this patient today ____ minutes.
--- NOTE | 2023-05-10 08:56 | P.OP_ITS ---
Operative Note Operative Note Date of Service: 05/10/23 Narrative: Radiofrequency lesioning medial branch nerves, left T12, L1, L2 medial branches (2 levels, 3 nerves) After obtaining written consent, pre-procedure blood pressure and heart rate were stable and recorded in the nursing record. The patient was placed in the prone position. The lumbar area was prepped with chloraprep and draped in sterile fashion. The skin over the target for each medial branch nerve was ane sthetized with 0.5% lidocaine. An 18 gauge radiofrequency cannula was advanced to each target site under fluoroscopic guidance. No paresthesias were elicited with needle placement and aspiration was negative for heme and CSF. Impedences were verified under 600 ohms. Sensory testing (50 Hz) and then motor testing (2 Hz) confirmed needle placement at each site within the appropriate voltage thresholds. Each site was injected with 0.5 ml 2% preservative-free lidocaine. Radiofrequency lesioning was performed for 90 seconds at 80 deg Celcius. Each site was then injected with 0.5ml 0.5% ropivacaine. The needle was removed, skin cleansed and a sterile bandage was applied. The patient tolerated the procedure well and no complications were encountered. Following the procedure the patient's vital signs were stable. The patient was discharged home in good condition with post-procedural instructions. Time Out: Immediately prior to the procedure, the following was verbally confirmed that there is a signed consent form and that the correct patient, planned procedure, site and side are consistent with documentation and that necessary equipment and/or blood products are available prior to the start of the case. Complications: none EBL: <5 cc
[2023-05-10 09:42] VITALS: BP 162/54; PULSE 61; RESP 16; TEMP 36.8; O2SAT 98
== END 2023-05-10 10:08 | disposition home or self-care (01) ==
PROVIDERS: PCP Internal Medicine; Visit Provider Internal Medicine
PROC: (CPT 64635; principal; 2023-05-10 08:30)
DX: M47.816 Spondylosis without myelopathy or radiculopathy, lumbar region (principal); J44.9 Chronic obstructive pulmonary disease, unspecified; J90 Pleural effusion, not elsewhere classified; Z79.51 Long term (current) use of inhaled steroids; Z79.82 Long term (current) use of aspirin; Z79.4 Long term (current) use of insulin; Z79.899 Other long term (current) drug therapy; Z99.89 Dependence on other enabling machines and devices
CPT/HCPCS: 64635; 64636; J2795

== ENCOUNTER → 2023-05-10 06:15 | Outpatient (BNV) | payer MEDICARE, OTHER, SELFPAY | PROVIDERS: PCP Internal Medicine; Visit Provider Internal Medicine | DX: M47.816 Spondylosis without myelopathy or radiculopathy, lumbar region (principal) | CPT/HCPCS: 64633; 64635 ==

== ENCOUNTER 2023-06-02 08:11 | Outpatient (AMB) | payer MEDICARE, OTHER, SELFPAY ==
--- NOTE | 2023-06-02 08:12 | A.OFFVIS_ITS ---
Intake Vital Signs 06/02/23 08:14 Height 5 ft 3 in BP 147/64 H Blood Pressure Location Lt brachial Position Sitting Respiration 12 Pulse 88 Pulse Source Pulse Oximeter Intake Visit Reasons: s/p Left D33-D6-V4 MB RFA/confirmed Allergies seasonal allergies Allergy (Severe, Uncoded 06/02/23 08:15) Rash and Hives Medication List - Last Reconciled 06/02/23 by Ludy Vázquez LPN albuterol sulfate 90 mcg/actuation 2 inhalations inhalation Q6-8H PRN amlodipine 10 mg PO DAILY anastrozole 1 mg PO DAILY aspirin (Adult Low Dose Aspirin) 81 mg PO DAILY carvedilol 6.25 mg PO BID chlorthalidone 25 mg PO DAILY clobetasol 0.05% 1 appl topical DAILY CPAP (CPAP Machine/Device) As directed donepezil 5 mg PO BEDTIME ezetimibe 10 mg PO DAILY qxczvvgzvwr-ouaidbzaj-blcoylyz 100-62.5-25 mcg (Trelegy Ellipta) 1 inh inhalation DAILY 90 days insulin aspart U-100 units subcut insulin glargine units subcut lactobacillus combination no.9 (Adult 50 Plus Probiotic) 4,000 mmu cells PO DAILY lisinopril 20 mg PO BID montelukast (Singulair) 10 mg PO BEDTIME 90 days pravastatin 40 mg PO DAILY HPI s/p Left P80-M7-Y5 MB RFA/confirmed HPI Details 83-year-old female who presents today to the office for a status post left E88-A0-Y1 MB RFA. The patient reports resolution of her midback pain since the procedure. She now reports lower back pain on the same side. This is different area from her previous pain. She has been wearing a spine brace that has been helpful. She noticed a popping sound from the back side of the right leg when coming back to the bed from the bathroom two days ago. She had excruciating pain and was unable to move. She was seen in the [facility] ER and underwent US, which did not show any blood clots. She also had an x-ray of the leg that showed no sign of a fracture. The ER doctor referred her to an orthopedist. She has an appointment with Dr. Bowers on 06/30/23. She is using a brace and walker, which were provided by the ER with good relief. She has mild swelling in her bilateral legs. She wears compression socks every night. Past Procedures: 05/10/2023: Radiofrequency lesioning med ial branch nerves, left T12, L1, L2 medial branches (2 levels, 3 nerves): Resolution of midback pain 01/20/23: Lumbar Medial Branch Nerve Sti mulation Lead Placement, SPR (Sprint) System, Left L1: Excellent relief while the device was in place 07/06/22: Left O77-Q6-I2 MB RFA: 90% rel ief for about six months. 06/10/22: Left Z54-D8-A0 MBB ? 100% reli ef. 06/01/22: Left V62-Y9-U5 MBB ? 100% reli ef. [facility] Medical History (Updated 05/09/23 @ 09:47 by Dillan Hayes MD) Pleural effusion on right Atelectasis Dyspnea Hoarseness Back pain JAYLA on CPAP Asthma-COPD overlap syndrome Social History (Updated 08/19/21 @ 09:09 by Yolanda Fernandez [facility]) Comment: NO COUNTS NEEDED Patient Tobacco Use Status: Never used Tobacco Review of Systems Const All systems reviewed & are unremarkable except as noted in HPI and below Physical Exam Vital Signs: Last Vital Signs Pulse 88 06/02/23 08:14 Resp 12 06/02/23 08:14 BP 147/64 H 06/02/23 08:14 General: Appears afebrile. Alert and oriented. Mood and affect appropriate. Follows and participates in conversation appropriately. Respiratory effort is unlabored. Able to transition from sit to stand unassisted. Ambulates with bilaterally normal heel strike and toe off. Pain and tenderness in the left lower back. Patient is unable to perform facet loading maneuvers due to body habitus and pain. Results Reviewed Results Reviewed: No imaging is available for review. Assessment & Plan Assessment & Plan (1) Lumbar spondylosis: Code(s): M47.816 - Spondylosis without myelopathy or radiculopathy, lumbar region (2) Lumbar compression fracture: Code(s): S32.000A - Wedge compression fracture of unspecified lumbar vertebra, initial encounter for closed fracture Plan Discussed temporary/permanent nerve stimulator therapies as possible treatment options. Her midback pain is relatively well controlled at this time. Patient is interested in trialing temporary nerve stimulation for left lower back pain since she found it helpful for her midback pain last year. Will schedule her for a left L3 medial branch nerve stimulator for intractable low back pain on the left side. Discussed the risks and benefits of the procedure with the patient in detail. All questions were answered. The patient is on board with the plan. Justification for interventional therapy: ? Patient with average pain > 6/10 ? Patient has exhausted conservative therapy ? Patient unable to tolerate physical therapy due to pain Scribed for Dr. Ash by Manolo Watts, nuclear medicine medical director, on 06/02/2023. I, Dr. Ash, have personally reviewed and agree with the information entered by the scribe. Coding Level of Care Code Est Pt Level 4 (29564) Diagnoses Lumbar spondylosis M47.816 Lumbar compression fracture S32.000A
[2023-06-02 08:14] VITALS: BP 147/64; PULSE 88; RESP 12
== END 2023-06-02 09:03 | disposition home or self-care (01) ==
PROVIDERS: PCP Internal Medicine; Visit Provider Internal Medicine
DX: M47.816 Spondylosis without myelopathy or radiculopathy, lumbar region (principal); S32.000A Wedge compression fracture of unspecified lumbar vertebra, initial encounter for closed fracture
CPT/HCPCS: 99214

== ENCOUNTER → 2023-06-02 08:11 | Outpatient (BNVA) | payer MEDICARE, OTHER, SELFPAY | PROVIDERS: PCP Internal Medicine; Visit Provider Internal Medicine | DX: M47.816 Spondylosis without myelopathy or radiculopathy, lumbar region (principal); S32.000D Wedge compression fracture of unspecified lumbar vertebra, subsequent encounter for fracture with routine healing | CPT/HCPCS: 99212 ==

== ENCOUNTER 2023-07-06 06:23 | Outpatient (REF) | payer MEDICARE, OTHER, SELFPAY ==
--- NOTE | ~2023-07-06 | FL_ITS ---
EXAMINATION: XR FLUOROSCOPY WITH IMAGES CLINICAL INFORMATION: Spondylosis without myelopathy or radiculopathy of lumbar region COMPARISON: 05/10/2023 TECHNIQUE: Fluoroscopy Supervised By: Dr. Zeng. Fluoroscopy Time: 13.2 sec. Cumulative Dose: 7.17 mGy. DAP: This information is not provided on the dose summary sheet. Images: 5. FL/FL guidance in treatment room FINDINGS AND IMPRESSION: Fluoroscopic imaging equipment utilized during a lumbar injection procedure. The tip of a needle is in L5-S1 epidural region. Please refer to the procedure report by Dr. Zeng.
== END 2023-07-06 06:24 | disposition home or self-care (01) ==
LOC: CF 06:23
PROVIDERS: Visit Provider Internal Medicine
DX: M47.816 Spondylosis without myelopathy or radiculopathy, lumbar region (principal)
CPT/HCPCS: 64555; C1778

== ENCOUNTER 2023-07-06 15:12 | Outpatient (AMB) | payer MEDICARE, OTHER, SELFPAY ==
[2023-07-06 15:11] VITALS: BP 138/78; PULSE 69; O2SAT 96
--- NOTE | 2023-07-06 15:11 | A.OFFVIS_ITS ---
Intake Vital Signs 07/06/23 15:11 Height 5 ft 3 in BP 138/78 Blood Pressure Location Lt brachial Position Sitting Pulse 69 Pulse Source Doppler Pulse Oximetry (%) 96 Oxygen Delivery Method Room Air Intake Visit Reasons: Left L3 MB Sprint Allergies seasonal allergies Allergy (Severe, Uncoded 06/02/23 08:15) Rash and Hives HPI Left L3 MB Sprint HPI Details Patient presents for scheduled procedure. Denies any recent cough, cold, infection, fever or other significant changes in medical history since last office visit. [facility] Medical History (Updated 07/06/23 @ 16:19 by Jose Roberto Ash MD) Pleural effusion on right Atelectasis Dyspnea Hoarseness Back pain JAYLA on CPAP Asthma-COPD overlap syndrome Social History (Updated 08/19/21 @ 09:09 by DENIS Cline) Comment: NO COUNTS NEEDED Patient Tobacco Use Status: Never used Tobacco Physical Exam Vital Signs: Last Vital Signs Pulse 69 07/06/23 15:11 BP 138/78 07/06/23 15:11 Pulse Ox 96 07/06/23 15:11 Oxygen Delivery Method Room Air 07/06/23 15:11 Office Procedures Details: Lumbar Medial Branch Nerve Stimulation Lead Placement, SPR (Sprint) System, Left L4 Medial Branch ? After the risks, benefits and alternatives were discussed with the patient and informed consent was obtained, patient was placed in the prone position and padded to foster comfort. The skin overlying the lumbosacral spine was prepped and draped in sterile fashion. Fluoroscopy was used to identify the spinous process and lamina in the center of the patient?s region of pain. After identifying and marking the intended target along the course of the medial branch nerve, the skin around the planned entry point and the subcutaneous tissues were injected with lidocaine 1%. An introducer needle and stimulating probe were assembled, inserted and advanced along the intended course of the medial branch nerve as it traverses the lamina medial and inferior to the zygapophyseal joint, taking care to maintain the proper depth of insertion as the introducer is advanced under fluoroscopic guidance. The introducer needle was delivered to a location in proximity to the nerve. Multiple stimulation parameters were used to deliver stimulation to the target medial branch nerve in concert with stimulating at multiple positions around the nerve. Nerve target acquisition was confirmed noting generation of paresthesias in the paravertebral regions corresponding to the level being stimulated. Various electrical parameter combinations were tested, and the lead location was adjusted (physically relocated) until the patient indicated paresthesia/muscle tension overlapping the distribution of the patient?s typical region of pain. The stimulating probe was removed from the introducer and a percutaneous lead was guided through the needle and delivered to a location in similar proximity to the nerve. Final location was verified with electrical stimulation and documented with fluoroscopy. The introducer needle was removed, and the exposed end of the percutaneous lead was attached to an external stimulator unit. Various electrical parameter combinations were again tested until the patient indicated paresthesia or muscle tension overlapping the distribution of the patient?s typical region of pain. After confirming that lead impedance was in the normal range, the external unit was detached, the needle was removed, and the lead was anchored at the skin. The lead was threaded into the connector block and electrical continuity and desired patient response was confirmed. The connector block was attached to the external stimulator unit. The site was covered with a sterile occlusive dressing. The patient was observed for stability of vital signs and comfort. Sprint PNS Device: Sprint PNS Device [id number] Percutaneous Peripheral Neuroelectrode Procedure: 15209 - Percutaneous Peripheral Neuroelectrode Procedure code (CPT) selection complete Office Meds lidocaine (PF) 50 mg/5 mL (1 %) injection syringe Performing Provider: Jose Roberto Ash MD [place] [facility] [facility] Administered by: Jose Roberto Ash MD on 07/06/23 16:19 Dose Route Admin Location Dispensed Lot Number Expiration Date [facility] Welding Machine Operator Plasma Arc 5 mL subcut 5 mL [id number] [employer] Assessment & Plan Assessment & Plan (1) Intractable back pain: Code(s): M54.9 - Dorsalgia, unspecified Plan Patient is status post left L4 medial branch nerve temporary PNS placement. Patient tolerated procedure well and was discharged home in stable condition with discharge instructions. All questions were answered. We will follow-up via telephone or in clinic to assess response to therapy. A follow-up appointment was made during today's visit. Orders: Orders FL guidance in treatment room Today M47.816 - Spondylosis without myelopathy or radiculopathy, lumbar region Alee Zeng, FREEZING ROOM WORKER, ANESTHESIOLOGY TEACHER AMB Sprint PNS Today M54.9 - Dorsalgia, unspecified Jose Roberto Ash MD Coding Level of Care Code Procedure Only Diagnoses Intractable back pain M54.9 CPT Codes Sprint PNS - Sprint PNS Device: Sprint PNS Device ([id number]) Sprint PNS - SPRINT: 17493 - Percutaneous Peripheral Neuroelectrode ([id number])
== END 2023-07-06 16:18 | disposition home or self-care (01) ==
LOC: HO.PMCPRC 15:12
PROVIDERS: PCP Internal Medicine; Visit Provider Internal Medicine
DX: M54.9 Dorsalgia, unspecified (principal)
CPT/HCPCS: 64555

== ENCOUNTER 2023-07-10 08:43 | Outpatient (AMB) | payer MEDICARE, OTHER, SELFPAY ==
--- NOTE | 2023-07-10 08:45 | A.OFFVIS_ITS ---
Intake Vital Signs 07/10/23 08:47 Height 5 ft 3 in BP 120/56 L Blood Pressure Location Lt brachial Position Sitting Respiration 12 Pulse 72 Pulse Source Pulse Oximeter Pulse Oximetry (%) 94 Oxygen Delivery Method Room Air Intake Visit Reasons: s/p left L3 Sprint - Confirmed Allergies seasonal allergies Allergy (Severe, Uncoded 07/10/23 08:48) Rash and Hives Medication List - Last Reconciled 07/10/23 by Ludy Vázquez LPN albuterol sulfate 90 mcg/actuation 2 inhalations inhalation Q6-8H PRN amlodipine 10 mg PO DAILY anastrozole 1 mg PO DAILY aspirin (Adult Low Dose Aspirin) 81 mg PO DAILY carvedilol 6.25 mg PO BID chlorthalidone 25 mg PO DAILY clobetasol 0.05% 1 appl topical DAILY CPAP (CPAP Machine/Device) As directed donepezil 5 mg PO BEDTIME ezetimibe 10 mg PO DAILY ozxjjrvwpcr-tqrgxixpk-fozrrzqw 100-62.5-25 mcg (Trelegy Ellipta) 1 inh inhalation DAILY 90 days insulin aspart U-100 units subcut insulin glargine units subcut lactobacillus combination no.9 (Adult 50 Plus Probiotic) 4,000 mmu cells PO DAILY lisinopril 20 mg PO BID montelukast (Singulair) 10 mg PO BEDTIME 90 days pravastatin 40 mg PO DAILY HPI s/p left L3 Sprint - Confirmed HPI Details 83-year-old female who presents today to the office for a status post left L3 sprint. She has not noticed any significant improvement yet and is in the recovery phase. She reports mild soreness at the incision site. The patient?s states that the patient endorses uncomfortable sensations from the device when it was increased to more than 60. Her device is functional at 60-70. Past Procedures: 07/06/23: Lumbar Medial Branch Nerve Stim ulation Left L4 Medial Branch: 05/10/23: Left A04-B1-C5 MB RFA:: Resolu tion of midback pain 01/20/23: Lumbar Medial Branch Nerve Sti mulation Left L1: Excellent relief while the device was in place 07/06/22: Left I38-F3-I3 MB RFA: 90% rel ief mid back pain for about six months. 06/10/22: Left O65-J9-W2 MBB ? 100% reli ef. 06/01/22: Left Q40-A7-L6 MBB ? 100% reli ef. [facility] Medical History (Updated 07/06/23 @ 16:19 by Jose Roberto Ash MD) Pleural effusion on right Atelectasis Dyspnea Hoarseness Back pain JAYLA on CPAP Asthma-COPD overlap syndrome Social History (Updated 08/19/21 @ 09:09 by Yolanda Fernandez [facility]) Comment: NO COUNTS NEEDED Patient Tobacco Use Status: Never used Tobacco Review of Systems Const All systems reviewed & are unremarkable except as noted in HPI and below Physical Exam Vital Signs: Last Vital Signs Pulse 72 07/10/23 08:47 Resp 12 07/10/23 08:47 BP 120/56 L 07/10/23 08:47 Pulse Ox 94 07/10/23 08:47 Oxygen Delivery Method Room Air 07/10/23 08:47 General: Appears afebrile. Alert and oriented. Mood and affect appropriate. Follows and participates in conversation appropriately. Respiratory effort is unlabored. Able to transition from sit to stand unassisted. Ambulates with bilaterally normal heel strike and toe off. The site was clean, dry, and intact. Results Reviewed Results Reviewed: No imaging is available for review. Assessment & Plan Assessment & Plan (1) Intractable back pain: Code(s): M54.9 - Dorsalgia, unspecified (2) Chronic low back pain: Code(s): M54.50 - Low back pain, unspecified; G89.29 - Other chronic pain Plan The site was clean, dry, and intact. The dressing was changed today in the office. She will follow-up as scheduled. Scribed for Dr. Ash by Manolo Watts, medical library assistant, on 07/10/2023. I, Dr. Ash, have personally reviewed and agree with the information entered by the scribe. Coding Level of Care Code Est Pt Level 3 (63812) Diagnoses Intractable back pain M54.9 Chronic low back pain M54.50; G89.29
[2023-07-10 08:47] VITALS: BP 120/56; PULSE 72; RESP 12; O2SAT 94
== END 2023-07-10 09:19 | disposition home or self-care (01) ==
PROVIDERS: PCP Internal Medicine; Visit Provider Internal Medicine
DX: M54.9 Dorsalgia, unspecified (principal); M54.50 Low back pain, unspecified; G89.29 Other chronic pain
CPT/HCPCS: 99024

== ENCOUNTER → 2023-07-10 08:43 | Outpatient (BNVA) | payer MEDICARE, OTHER, SELFPAY | PROVIDERS: PCP Internal Medicine; Visit Provider Internal Medicine | DX: M54.50 Low back pain, unspecified (principal); M54.9 Dorsalgia, unspecified; G89.29 Other chronic pain | CPT/HCPCS: 99212 ==

== ENCOUNTER 2023-09-01 08:02 | Outpatient (AMB) | payer MEDICARE, OTHER, SELFPAY ==
[2023-09-01 08:12] VITALS: BP 106/53; PULSE 70; RESP 12; O2SAT 97; BMI 34.9
--- NOTE | 2023-09-01 08:12 | MHC.OFFVIS ---
Intake Vital Signs 09/01/23 08:12 Height 5 ft 3 in Weight 197 lb BMI 34.9 BP 106/53 L Blood Pressure Location Lt brachial Position Sitting Respiration 12 Pulse 70 Pulse Source Pulse Oximeter Pulse Oximetry (%) 97 Oxygen Delivery Method Room Air Intake Visit Reasons: Sprint removal Allergies seasonal allergies Allergy (Severe, Uncoded 09/01/23 08:14) Rash and Hives Medication List - Last Reconciled 09/01/23 by Ludy Vázquez LPN albuterol sulfate 90 mcg/actuation 2 inhalations inhalation Q6-8H PRN amlodipine 10 mg PO DAILY anastrozole 1 mg PO DAILY aspirin (Adult Low Dose Aspirin) 81 mg PO DAILY carvedilol 6.25 mg PO BID chlorthalidone 25 mg PO DAILY clobetasol 0.05% 1 appl topical DAILY CPAP (CPAP Machine/Device) As directed donepezil 5 mg PO BEDTIME ezetimibe 10 mg PO DAILY mmbqgbhvwnj-xjyyffxyc-pxpsfenf 100-62.5-25 mcg (Trelegy Ellipta) 1 inh inhalation DAILY 90 days insulin aspart U-100 units subcut insulin glargine units subcut lactobacillus combination no.9 (Adult 50 Plus Probiotic) 4,000 mmu cells PO DAILY lisinopril 20 mg PO BID montelukast (Singulair) 10 mg PO BEDTIME 90 days pravastatin 40 mg PO DAILY HPI Sprint removal HPI Details 83-year-old female who presents today to the office for a sprint removal. The patient is overall doing well. She has ongoing pain relief from the nerve stimulation. She states that the weather intermittently worsens the back pain. Past Procedures: 07/06/23: Lumbar Medial Branch Nerve Stimulation Left L4 Medial Branch: Resolution of lower back pain 05/10/23: Left D14-B4-X5 MB RFA:: Resolution of midback pain 01/20/23: Lumbar Medial Branch Nerve Stimulation Left L1: Excellent relief while the device was in place 07/06/22: Left X20-H3-X9 MB RFA: 90% relief mid back pain for about six months. 06/10/22: Left D61-J9-U7 MBB ? 100% relief. 06/01/22: Left L83-Y4-M7 MBB ? 100% relief. [facility] Medical History (Updated 07/06/23 @ 16:19 by Jose Roberto Ash MD) Pleural effusion on right Atelectasis Dyspnea Hoarseness Back pain JAYLA on CPAP Asthma-COPD overlap syndrome Social History (Updated 08/19/21 @ 09:09 by Yolanda Fernandez [facility]) Comment: NO COUNTS NEEDED Patient Tobacco Use Status: Never used Tobacco Review of Systems Const All systems reviewed & are unremarkable except as noted in HPI and below Physical Exam Vital Signs: Last Vital Signs Pulse 70 09/01/23 08:12 Resp 12 09/01/23 08:12 BP 106/53 L 09/01/23 08:12 Pulse Ox 97 09/01/23 08:12 Oxygen Delivery Method Room Air 09/01/23 08:12 BMI result Body Mass Index 34.9 General: Appears afebrile. Alert and oriented. Mood and affect appropriate. Follows and participates in conversation appropriately. Respiratory effort is unlabored. Able to transition from sit to stand unassisted. Ambulates with bilaterally normal heel strike and toe off. Results Reviewed Results Reviewed: No imaging is available for review. Assessment & Plan Assessment & Plan (1) Intractable back pain: Code(s): M54.9 - Dorsalgia, unspecified Plan We will continue to monitor for the next three months. The patient will follow up once her pain starts to come back, and we will proceed with the permanent stimulator device. We will need to tease out whether her mid or lower back pain is more bothersome at the time. I also explained to the patient that we need to receive a psychological clearance prior to the placement of a permanent implant. Scribed for Dr. Ash by Manolo Watts, emergency medical tech, on 09/01/2023. I, Dr. Ash, have personally reviewed and agree with the information entered by the scribe. Coding Level of Care Code Est Pt Level 3 (50263) Diagnoses Intractable back pain M54.9
== END 2023-09-01 08:41 | disposition home or self-care (01) ==
PROVIDERS: PCP Internal Medicine; Visit Provider Internal Medicine
DX: M54.9 Dorsalgia, unspecified (principal)
CPT/HCPCS: 99213

== ENCOUNTER → 2023-09-01 08:02 | Outpatient (BNVA) | payer MEDICARE, OTHER, SELFPAY | PROVIDERS: PCP Internal Medicine; Visit Provider Internal Medicine | DX: M54.9 Dorsalgia, unspecified (principal) | CPT/HCPCS: 99212 ==

== ENCOUNTER 2023-12-08 08:04 | Outpatient (AMB) | payer MEDICARE, OTHER, SELFPAY ==
--- NOTE | 2023-12-08 08:15 | MHC.OFFVIS ---
Vital Signs 12/08/23 08:16 Height 5 ft 3 in Weight 199 lb BMI 35.2 BP 127/62 Blood Pressure Location Lt brachial Position Sitting Respiration 14 Pulse 72 Pulse Source Pulse Oximeter Pulse Oximetry (%) 95 Oxygen Delivery Method Room Air Intake Visit Reasons: Back pain Allergies seasonal allergies Allergy (Severe, Uncoded 12/08/23 08:17) Rash and Hives Medication List - Last Reconciled 12/08/23 by Ludy Vázquez LPN albuterol sulfate 90 mcg/actuation 2 inhalations inhalation Q6-8H PRN amlodipine 10 mg PO DAILY anastrozole 1 mg PO DAILY aspirin (Adult Low Dose Aspirin) 81 mg PO DAILY carvedilol 6.25 mg PO BID chlorthalidone 25 mg PO DAILY clobetasol 0.05% 1 appl topical DAILY CPAP (CPAP Machine/Device) As directed donepezil 5 mg PO BEDTIME ezetimibe 10 mg PO DAILY yywxaigybsi-exbrnvtjr-ofyuwzni 100-62.5-25 mcg (Trelegy Ellipta) 1 inh inhalation DAILY 90 days insulin aspart U-100 units subcut insulin glargine units subcut lactobacillus combination no.9 (Adult 50 Plus Probiotic) 4,000 mmu cells PO DAILY lidocaine 4% 1 patch topical DAILY PRN lisinopril 20 mg PO BID montelukast (Singulair) 10 mg PO BEDTIME 90 days pravastatin 40 mg PO DAILY HPI HPI Back pain: Details: 83-year-old female who presents today to the office for a back pain. She reports lower back pain. Overall the pain is relatively improved. She has been using lidocaine topical patches 4% once daily, with benefits. She has not tried salonpas. She requested a prescription script for lidocaine 5% topical patches. Past Procedures: 07/06/23: Lumbar Medial Branch Nerve Stimulation Left L4 Medial Branch: Resolution of lower back pain 05/10/23: Left P36-B3-A8 MB RFA:: Resolution of midback pain 01/20/23: Lumbar Medial Branch Nerve Stimulation Left L1: Excellent relief while the device was in place 07/06/22: Left C89-Z4-H5 MB RFA: 90% relief mid back pain for about six months. 06/10/22: Left Q51-S9-N3 MBB ? 100% relief. 06/01/22: Left T39-M2-P2 MBB ? 100% relief. [facility] Medical History (Updated 07/06/23 @ 16:19 by Jose Roberto Ash MD) Pleural effusion on right Atelectasis Dyspnea Hoarseness Back pain JAYLA on CPAP Asthma-COPD overlap syndrome Social History (Updated 08/19/21 @ 09:09 by Yolanda Fernandez [facility]) Comment: NO COUNTS NEEDED Patient Tobacco Use Status: Never used Tobacco Review of Systems Const All systems reviewed & are unremarkable except as noted in HPI and below Physical Exam Vital Signs: Last Vital Signs Pulse 72 12/08/23 08:16 Resp 14 12/08/23 08:16 BP 127/62 12/08/23 08:16 Pulse Ox 95 12/08/23 08:16 Oxygen Delivery Method Room Air 12/08/23 08:16 BMI result Body Mass Index 35.2 General: Appears afebrile. Alert and oriented. Mood and affect appropriate. Follows and participates in conversation appropriately. Respiratory effort is unlabored. Able to transition from sit to stand unassisted. Ambulates with bilaterally normal heel strike and toe off. Results Reviewed Results Reviewed: No imaging is available for review. Assessment & Plan Assessment & Plan (1) Chronic low back pain: Code(s): M54.50 - Low back pain, unspecified; G89.29 - Other chronic pain Category: Medical Plan I prescribed her lidocaine 5% topical patches to be used daily. I also recommended that she try the salonpas if she ever stopped getting relief from lidocaine patches. The patient expressed understanding. Follow up as needed. Scribed for Dr. Ash by Manolo Watts, medical office assistant instructor, on 12/08/2023. I, Dr. Ash, have personally reviewed and agree with the information entered by the scribe. Medications: New lidocaine 5% leave on most painful area for up to 12 hrs 1 patch topical DAILY 30 ea 11RF Coding Level of Care Code Est Pt Level 3 (90233) Diagnoses Chronic low back pain M54.50; G89.29
[2023-12-08 08:16] VITALS: BP 127/62; PULSE 72; RESP 14; O2SAT 95; BMI 35.2
== END 2023-12-08 08:44 | disposition home or self-care (01) ==
PROVIDERS: PCP Internal Medicine; Visit Provider Internal Medicine
DX: M54.50 Low back pain, unspecified (principal); G89.29 Other chronic pain
CPT/HCPCS: 99213

== ENCOUNTER → 2023-12-08 08:04 | Outpatient (BNVA) | payer MEDICARE, OTHER, SELFPAY | PROVIDERS: PCP Internal Medicine; Visit Provider Internal Medicine | DX: M54.50 Low back pain, unspecified (principal); G89.29 Other chronic pain | CPT/HCPCS: 99212 ==

== ENCOUNTER 2023-12-29 15:11 | Outpatient (AMB) | payer MEDICARE, OTHER, SELFPAY ==
--- NOTE | 2023-12-29 15:10 | MHC.OFFVIS ---
Vital Signs 12/29/23 15:13 Height 5 ft 3 in Weight 200 lb 2 oz BMI 35.4 BP 130/68 Blood Pressure Location Rt brachial Position Sitting Pulse 59 Pulse Source Pulse Oximeter Pulse Oximetry (%) 95 Oxygen Delivery Method Room Air Intake Visit Reasons: Increased shortness of breath with exertion Allergies seasonal allergies Allergy (Severe, Uncoded 12/29/23 15:15) Rash and Hives HPI HPI Increased shortness of breath with exertion: Details: Ramona is a pleasant 83 year old, never smoker, with underlying asthma and JAYLA on CPAP. At baseline, she is well controlled on Trelegy, singulair and albuterol MDI. She is under the care of Dr. Hayes and presents today for an acute visit. She reports worsening increased dyspnea with exertion the last two days. She notes significant increased recovery time with labored breathing and chest tightness. She denies any wheezing or cough. She denies any fever, chills, or sick contacts. [facility] Medical History (Updated 01/01/24 @ 08:24 by Ayesha Fulton NP) Pleural effusion on right Atelectasis Dyspnea Hoarseness Back pain JAYLA on CPAP Asthma-COPD overlap syndrome Social History Comment: NO COUNTS NEEDED Patient Tobacco Use Status: Never used Tobacco Review of Systems Const Denies chills, Denies excessive sweating, Denies fever(s), Denies headache(s) and Denies night sweats Eyes Denies dry eyes, Denies irritation and Denies itchy eyes ENT Reports Normal hearing present, Denies headache(s), Denies nasal congestion, Denies nasal discharge, Denies post nasal drip and Denies sore throat Card Denies chest pain, Denies chest pain at rest, Denies chest pain with activity, Denies claudication, Denies leg edema, Reports dyspnea, Reports dyspnea on exertion, Denies orthopnea and Denies paroxysmal nocturnal dyspnea Resp Denies chest congestion, Denies cough, Denies hemoptysis, Denies excessive phlegm production, Denies pain on inspiration, Denies pain with cough, Reports dyspnea, Reports dyspnea on exertion, Denies stridor and Denies wheezing Musc Denies myalgias Neuro Reports Normal hearing present and Denies headache(s) Endo Denies excessive sweating Tae/Lymph Denies lymphadenopathy Aller/Immun Denies itchy eyes, Denies seasonal rhinorrhea and Denies wheezing Physical Exam Vital Signs: Last Vital Signs Pulse 59 12/29/23 15:13 BP 130/68 12/29/23 15:13 Pulse Ox 95 12/29/23 15:13 Oxygen Delivery Method Room Air 12/29/23 15:13 BMI result Body Mass Index 35.4 Const General: cooperative, healthy appearing, comfortable, no acute distress, well developed and alert Nutritional Appearance: obese Orientation/consciousness: patient oriented x3 Limitations: no limitations HEENT Head: Yes normal to inspection, Yes normocephalic and Yes atraumatic Ears: hearing grossly normal bilaterally and external ears normal Eyes General: appearance normal, both eyes and all related structures Eyelids: Yes eyelids normal Sclerae: sclerae normal EOM: EOMs intact bilaterally Neck Neck: Yes normal visual inspection and Yes no lymphadenopathy Lymphatic: no lymphadenopathy noted Chest Chest palpation & inspection: normal inspection of the chest Resp Effort & Inspection: normal respiratory effort, able to speak in complete sentences, no audible wheezes, no cough, no stridor, not tachypneic, no tripod positioning and no use of accessory muscles Auscultation: diminished lung sounds Cardio Jugular venous distension: no JVD Rate: regular rate Rhythm: regular rhythm Skin Other: warm, dry General skin exam: no rashes or lesions noted Neuro General: patient oriented x3 Cranial nerves: Yes Normal hearing present Cognition (Neuro): normal cognition Gait exam (Neuro): Normal gait present Extrem Other: pt with compression stockings, trace pedal edema noted bilaterally. Psych Appearance: grossly normal and well kempt Speech and movement: Normal speech and movement present and Clear speech present Affect: normal affect Attitude: cooperative Thought process: Normal thought process present Thought content: Normal thought content present Insight: Good insight present (Psych) Judgement: Good judgement present (Psych) Assessment & Plan Assessment & Plan (1) Asthma-COPD overlap syndrome: Code(s): J44.9 - Chronic obstructive pulmonary disease, unspecified Category: Medical Plan Ramona presents for an acute visit for worsening dyspnea on exertion. Will treat with 5 day course of 20 mg prednisone. Discussed with patient importance of using albuterol when symptomatic. Patient aware if symptoms worsen, seek emergent care and if they do not improve call office. All questions were answered and patient is in agreement of plan. Will follow up with Dr. Hayes for regularly scheduled appointment or sooner if needed. Medications: New prednisone 20 mg PO DAILY 5 tabs 0RF albuterol sulfate 90 mcg/actuation 2 inhalations inhalation Q6-8H PRN 1 ea 0RF shortness of breath or wheezing Coding Level of Care Code Est Pt Level 3 (32712) Diagnoses Asthma-COPD overlap syndrome J44.9
[2023-12-29 15:13] VITALS: BP 130/68; PULSE 59; O2SAT 95; BMI 35.4
== END 2023-12-29 15:51 | disposition home or self-care (01) ==
PROVIDERS: PCP Internal Medicine; Visit Provider Nurse Practitioner Family
DX: J44.9 Chronic obstructive pulmonary disease, unspecified (principal)
CPT/HCPCS: 99213

== ENCOUNTER → 2023-12-29 15:11 | Outpatient (BNVA) | payer MEDICARE, OTHER, SELFPAY | PROVIDERS: PCP Internal Medicine; Visit Provider Nurse Practitioner Family | DX: J44.9 Chronic obstructive pulmonary disease, unspecified (principal); G47.33 Obstructive sleep apnea (adult) (pediatric); Z99.89 Dependence on other enabling machines and devices | CPT/HCPCS: 99212 ==

== ENCOUNTER 2024-03-08 09:29 | Outpatient (AMB) | payer MEDICARE, OTHER, SELFPAY ==
--- NOTE | 2024-03-08 09:42 | A.OFFVIS_ITS ---
Vital Signs 03/08/24 09:44 Height 5 ft 3 in Weight 199 lb 15.348 oz BMI 35.4 BP 118/60 Blood Pressure Location Rt brachial Position Sitting Pulse 60 Pulse Source Pulse Oximeter Pulse Oximetry (%) 96 Oxygen Delivery Method Room Air Intake Visit Reasons: COPD [employer] Supervisor Required: No Allergies seasonal allergies Allergy (Severe, Uncoded 03/08/24 09:48) Rash and Hives HPI Comments Details: Patient is a 84 y/o woman with a history of asthma in addition to obstructive sleep apnea. She continues uses CPAP therapy with good effect. The CPAP therapy has been affected and beneficial. She does use it for more than 4 hours night. No issues with supplies and no issues with her CPAP this time. However, she started to have worsening dyspnea on exertion. Especially when she goes outside. Moderate in severity. Usually improves with rest or going side. She does exercise regularly at the gym the [employer] She has been using Breo. This has been helpful. But still having symptoms. 08/18/2020The patient is here for pulmonary follow-up visit. The patient overall is doing very well. She has been using the CPAP. The CPAP therapy continues to be affecting beneficial. She does use it all night for more than 4 hours a night. She does have a fullface mask and she feels like is very com fortable for her. In the meantime shortness of breath has been better. However, she did have a fall in the summertime resulting in significant back pain and potential compression fracture. More recently she had another fall that she is not aware of how it happened but, she did not lose consciousness. It also hit the same area and now she is having significant back pain. Moderate to severe. The patient states that this morning at 3:00 a.m. in the morning the pain woke her up with significant discomfort and she was actually tearing. I did offer her to get an x-ray and also lumbar x-ray but she does not want to get 1 at this time. I did advise her to call her primary care doctor as soon as possible to further address this issue. She is walking comfortably she denies any radiculopathies. Her breathing has been stable. She has gained some weight after the pandemic started. She has not been going to the gym but she used to 3 times a week. Now with the back pain she has a hard time considering exercising. She continues in the a with the Anoro this has been helpful. 11/01/2022 for the patient is here for pulmonary follow-up visit. Overall she is doing okay. She went on a trip to the [place] breathing is a lot better. She was able to go to the [place] and do plan to walking. However, when she got back to the [place] her breathing again because he a little more labored. She has been using the Trelegy that has been helpful. Although she has been noticing increasing hoarseness. She does take the high-dose Trelegy. We talked about decreasing the amount to steroid. When she got back she was wondering if she could have some allergies that was affecting her breathing. We had done some allergy testing in the past demonstrating an elevated IgE level of 214 in addition to an elevated eosinophil level. Explained to her that we do not know the actual allergens but she is definitely allergic to something in the environment. The only way to probably find out will be with allergy scratch testing. The patient in the meantime will be started on Singulair. If that is not effective she can always add antihistamines as needed. Will also decrease the amount of Trelegy steroid to try to improve her hoarseness. She continues with hoarseness then we may have to switch her to an HFA with spacer. The patient continues use her CPAP. CPAP therapy continues to be affecting beneficial she does use more than 4 hours a night. The patient does use a cane and she has had increasing shortness of breath specially in the [place] so therefore it is reasonable for her to get a placard. 12/01/2022 the patient is here for pulmonary follow-up visit. She had worsening respiratory symptoms. She was given a Z-Rakesh and also prednisone and did improve her cough overall. She still complains of some shortness of breath and intermittent cough. The cough is nonproductive in nature. She does feel the azithromycin was effective for her. She went down on the Trelegy recently to 100 in view of the hoarseness. I am hopeful that this will help her hoarseness. In the meantime a since the patient responded to the azithromycin we can try her on a chronic macrolide therapy for about a month to see if this provides her some relief and also Julissa Vogt with good Rx card in order for her to be able to get off cough suppressant as needed. She continues uses CPAP at nighttime. The CPAP therapy continues to be affecting beneficial. She does use it for more than 4 hours a night. She will continue with the singular also for her underlying allergies. 05/09/2023 the patient is here for pulmonary follow-up visit. The patient is feeling a lot better. Her respiratory status is back to baseline. She is off the azithromycin. She did tolerate the lower dose Trelegy. The patient has not had to use her rescue inhaler. She she has not required any additional prednisone or antibiotics. She has been vaccinated. I did encourage her to get RHC vaccine. The still low and she has not gotten. She will will talk to her primary care doctor as well. She in the meantime she continues use her CPAP therapy. The therapy has been affecting beneficial. She does have a fullface mask. Will send supplies through [facility] for her to continue to get supplies readily. The patient will follow-up in the fall of 2023. If she has any new or concerning issues she will call for an earlier assessment. 03/08/2024 the patient is here for a pulmonary follow-up visit. Overall the patient has been doing well. Apparently over the summer she had a hard time with her breathing. She did have significant shortness of breath chest tightness. She was evaluated for sick visit and was diagnosed with an asthma COPD exacerbation. She was treated accordingly. She continues the Trelegy inhaler. She still complains of dyspnea on exertion [id number] severity. She is interested in participating in pulmonary rehabilitation at this time. Will go ahead and request a chest x-ray PFTs and then subsequently set her up for pulmonary rehabilitation. She will continue to use the Trelegy for now. Once summer comes along we can assess to see if we can increase the dose to the 200 mcg dose which would be the higher dose. The patient also may be considering to get a nebulizer will see further when she returns in late spring. If she develops any worsening she has prior to that she will call for an earlier assessment and hopefully she can start pulmonary rehabilitation soon here at [place]. [facility] Medical History (Updated 01/09/24 @ 13:13 by Dillan Hayes MD) Chronic restrictive lung disease Pleural effusion on right Atelectasis Dyspnea Hoarseness Back pain JAYLA on CPAP Asthma-COPD overlap syndrome Social History Comment: NO COUNTS NEEDED Patient Tobacco Use Status: Never used Tobacco Review of Systems Const Denies fatigue and Denies night sweats ENT Denies change in voice, Denies lip swelling, Denies mouth pain, Reports nasal congestion, Reports nasal discharge and Denies tongue swelling Card Denies chest pain and Denies dyspnea on exertion Resp Reports cough and Denies dyspnea on exertion GI Denies abdominal pain Musc Denies no additional complaints and Reports back pain Neuro Denies Neuro-related abnormal movements Psych Denies no additional complaints Endo Denies fatigue Tae/Lymph Denies easy bleeding and Denies lymphadenopathy Aller/Immun Denies lip swelling and Denies tongue swelling Physical Exam Vital Signs: Last Vital Signs Pulse 60 03/08/24 09:44 BP 118/60 03/08/24 09:44 Pulse Ox 96 03/08/24 09:44 Oxygen Delivery Method Room Air 03/08/24 09:44 BMI result Body Mass Index 35.4 Const General: alert HEENT General nose exam: Abnormal external nose present and Nasal discharge present Neck Neck: Yes normal visual inspection, Yes full ROM and Yes no lymphadenopathy Chest Chest palpation & inspection: normal inspection of the chest Resp Auscultation: no crackles, no rhonchi, no wheezes and diminished lung sounds Cardio Rate: regular rate Rhythm: regular rhythm Heart sounds: S1 normal heart sound present and S2 normal heart sound present GI Palpation (GI): Soft to palpation and nontender Auscultation: normal bowel sounds General: Yes no CVA tenderness Back/Spine/Pelvis Back: no CVA tenderness Skin General skin exam: rashes and/or lesions noted Assessment & Plan Assessment & Plan (1) Asthma-COPD overlap syndrome: Code(s): J44.9 - Chronic obstructive pulmonary disease, unspecified Category: Medical (2) JAYLA on CPAP: Code(s): G47.33 - Obstructive sleep apnea (adult) (pediatric); Z99.89 - Dependence on other enabling machines and devices Category: Medical Plan Continue APAP therapy, PA Semi Dc padron. continue Trelegy 100 Benzonate as needed continue Singulair KELI as needed PFTs Pulmonary rehab CXR F/U 6-8 months Orders: Orders PFT pulmonary function test 03/08/24 J44.9 - Chronic obstructive pulmonary disease, unspecified Pulmonary Rehab 03/08/24 J44.9 - Chronic obstructive pulmonary disease, unspecified XR chest 2V 03/08/24 J44.9 - Chronic obstructive pulmonary disease, unspecified Coding Level of Care Code Est Pt Level 4 (71194) Diagnoses Asthma-COPD overlap syndrome J44.9 JAYLA on CPAP G47.33; Z99.89 Time Spent (min) 17
[2024-03-08 09:44] VITALS: BP 118/60; PULSE 60; O2SAT 96; BMI 35.4
== END 2024-03-08 10:05 | disposition home or self-care (01) ==
PROVIDERS: PCP Internal Medicine; Visit Provider Hospitalist
DX: J44.9 Chronic obstructive pulmonary disease, unspecified (principal); G47.33 Obstructive sleep apnea (adult) (pediatric); Z99.89 Dependence on other enabling machines and devices
CPT/HCPCS: 99214

== ENCOUNTER → 2024-03-08 09:29 | Outpatient (BNVA) | payer MEDICARE, OTHER, SELFPAY | PROVIDERS: PCP Internal Medicine; Visit Provider Hospitalist | DX: J44.9 Chronic obstructive pulmonary disease, unspecified (principal); G47.33 Obstructive sleep apnea (adult) (pediatric); Z99.89 Dependence on other enabling machines and devices | CPT/HCPCS: 99212 ==

== ENCOUNTER 2024-04-16 15:36 | Outpatient (REF) | payer MEDICARE, OTHER, SELFPAY ==
[2024-04-16 09:08] VITALS: PULSE 61; RESP 16; O2SAT 95
--- NOTE | 2024-04-16 15:43 | PFT_ITS ---
Flows: FEV1: 73 % of predicted at 1.25 L FVC: 77 % of predicted at 1.75 L FEV1/FVC: 72 % Bronchodilator response: Absent Volumes: Total lung capacity: 67 % of predicted at 3.03 L Residual volume: 61 % of predicted at 1.23 L Slow vital capacity: 74 % of predicted at 1.80 L Expiratory reserve volume: 43 % of predicted at 0.25 L Diffusion capacity: Mildly decreased, corrects to normal after adjustment for alveolar ventilation. Impression: Moderate restrictive ventilatory defect with no bronchodilator response. Decreased expiratory reserve volume suggests extrathoracic restriction likely secondary to abdominal obesity. Combination of restrictive ventilatory defect with decreased diffusion capacity suggests pulmonary parenchymal disease. Clinical correlation is advised. MTDD
== END 2024-04-16 15:37 | disposition home or self-care (01) ==
LOC: HO.RESP 15:36
PROVIDERS: PCP Internal Medicine; Visit Provider Hospitalist
DX: J44.9 Chronic obstructive pulmonary disease, unspecified (principal)
CPT/HCPCS: 94010; 94640; 94727; 94729

== ENCOUNTER → 2024-04-16 15:43 | Outpatient (BNV) | payer MEDICARE, OTHER, SELFPAY | PROVIDERS: PCP Internal Medicine; Visit Provider Internal Medicine Pulmonary Disease | DX: J44.9 Chronic obstructive pulmonary disease, unspecified (principal) | CPT/HCPCS: 94060; 94727; 94729 ==

== ENCOUNTER 2024-08-01 10:00 | Outpatient (RCR) | payer MEDICARE, OTHER, SELFPAY | END 2024-11-18 07:05 | disposition home or self-care (01) | LOC: HO.PR 10:00 | PROVIDERS: PCP Internal Medicine; Visit Provider Hospitalist | DX: J45.40 Moderate persistent asthma, uncomplicated (principal) | CPT/HCPCS: 94618; 99212; G0237; G0239 ==

== ENCOUNTER 2024-10-07 15:35 | Outpatient (AMB) | payer MEDICARE, OTHER, SELFPAY ==
[2024-10-07 15:40] VITALS: BP 132/60; PULSE 51; O2SAT 96; BMI 34.9
--- NOTE | 2024-10-07 15:40 | MHC.OFFVIS ---
Vital Signs 10/07/24 15:40 Height 5 ft 3 in Weight 197 lb 5.019 oz BMI 34.9 BP 132/60 Blood Pressure Location Lt brachial Position Sitting Pulse 51 Pulse Source Pulse Oximeter Pulse Oximetry (%) 96 Oxygen Delivery Method Room Air Intake Visit Reasons: COPD Allergies seasonal allergies Allergy (Severe, Uncoded 10/07/24 15:43) Rash and Hives HPI Comments Details: Patient is a 84 y/o woman with a history of asthma in addition to obstructive sleep apnea. She continues uses CPAP therapy with good effect. The CPAP therapy has been affected and beneficial. She does use it for more than 4 hours night. No issues with supplies and no issues with her CPAP this time. However, she started to have worsening dyspnea on exertion. Especially when she goes outside. Moderate in severity. Usually improves with rest or going side. She does exercise regularly at the gym the [employer] She has been using Breo. This has been helpful. But still having symptoms. 08/18/2020The patient is here for pulmonary follow-up visit. The patient overall is doing very well. She has been using the CPAP. The CPAP therapy continues to be affecting beneficial. She does use it all night for more than 4 hours a night. She does have a fullface mask and she feels like is very comfortable for her. In the meantime shortness of breath has been better. However, she did have a fall in the summertime resulting in significant back pain and potential compression fracture. More recently she had another fall that she is not aware of how it happened but, she did not lose consciousness. It also hit the same area and now she is having significant back pain. Moderate to severe. The patient states that this morning at 3:00 a.m. in the morning the pain woke her up with significant discomfort and she was actually tearing. I did offer her to get an x-ray and also lumbar x-ray but she does not want to get 1 at this time. I did advise her to call her primary care doctor as soon as possible to further address this issue. She is walking comfortably she denies any radiculopathies. Her breathing has been stable. She has gained some weight after the pandemic started. She has not been going to the gym but she used to 3 times a week. Now with the back pain she has a hard time considering exercising. She continues in the a with the Anoro this has been helpful. 11/01/2022 for the patient is here for pulmonary follow-up visit. Overall she is doing okay. She went on a trip to the [place] breathing is a lot better. She was able to go to the [place] and do plan to walking. However, when she got back to the [place] her breathing again because he a little more labored. She has been using the Trelegy that has been helpful. Although she has been noticing increasing hoarseness. She does take the high-dose Trelegy. We talked about decreasing the amount to steroid. When she got back she was wondering if she could have some allergies that was affecting her breathing. We had done some allergy testing in the past demonstrating an elevated IgE level of 214 in addition to an elevated eosinophil level. Explained to her that we do not know the actual allergens but she is definitely allergic to something in the environment. The only way to probably find out will be with allergy scratch testing. The patient in the meantime will be started on Singulair. If that is not effective she can always add antihistamines as needed. Will also decrease the amount of Trelegy steroid to try to improve her hoarseness. She continues with hoarseness then we may have to switch her to an HFA with spacer. The patient continues use her CPAP. CPAP therapy continues to be affecting beneficial she does use more than 4 hours a night. The patient does use a cane and she has had increasing shortness of breath specially in the [place] so therefore it is reasonable for her to get a placard. 12/01/2022 the patient is here for pulmonary follow-up visit. She had worsening respiratory symptoms. She was given a Z-Rakesh and also prednisone and did improve her cough overall. She still complains of some shortness of breath and intermittent cough. The cough is nonproductive in nature. She does feel the azithromycin was effective for her. She went down on the Trelegy recently to 100 in view of the hoarseness. I am hopeful that this will help her hoarseness. In the meantime a since the patient responded to the azithromycin we can try her on a chronic macrolide therapy for about a month to see if this provides her some relief and also Julissa Vogt with good Rx card in order for her to be able to get off cough suppressant as needed. She continues uses CPAP at nighttime. The CPAP therapy continues to be affecting beneficial. She does use it for more than 4 hours a night. She will continue with the singular also for her underlying allergies. 05/09/2023 the patient is here for pulmonary follow-up visit. The patient is feeling a lot better. Her respiratory status is back to baseline. She is off the azithromycin. She did tolerate the lower dose Trelegy. The patient has not had to use her rescue inhaler. She she has not required any additional prednisone or antibiotics. She has been vaccinated. I did encourage her to get RHC vaccine. The still low and she has not gotten. She will will talk to her primary care doctor as well. She in the meantime she continues use her CPAP therapy. The therapy has been affecting beneficial. She does have a fullface mask. Will send supplies through [facility] for her to continue to get supplies readily. The patient will follow-up in the fall of 2023. If she has any new or concerning issues she will call for an earlier assessment. 03/08/2024 the patient is here for a pulmonary follow-up visit. Overall the patient has been doing well. Apparently over the summer she had a hard time with her breathing. She did have significant shortness of breath chest tightness. She was evaluated for sick visit and was diagnosed with an asthma COPD exacerbation. She was treated accordingly. She continues the Trelegy inhaler. She still complains of dyspnea on exertion [id number] severity. She is interested in participating in pulmonary rehabilitation at this time. Will go ahead and request a chest x-ray PFTs and then subsequently set her up for pulmonary rehabilitation. She will continue to use the Trelegy for now. Once summer comes along we can assess to see if we can increase the dose to the 200 mcg dose which would be the higher dose. The patient also may be considering to get a nebulizer will see further when she returns in late spring. If she develops any worsening she has prior to that she will call for an earlier assessment and hopefully she can start pulmonary rehabilitation soon here at [place]. 10/07/2024 the patient is here for a pulmonary follow-up visit. The patient is doing well. She continues to participate in pulmonary rehabilitation has been very helpful for her. She is currently doing the face 3 program and she is tolerating it well. She feels like her breathing is better overall. In the meantime she continues with respiratory inhalers including Trelegy which she tolerates well. And she has been working on deep breathing exercises for the restrictive lung disease. From the CPAP standpoint the patient has been very a hearing to her CPAP therapy without any issues. She has been getting supplies from [facility] without any issues either. The CPAP therapy has been affecting beneficial when she does use it for more than 4 hours a night. She is up-to-date with her vaccines. The patient otherwise is doing well so therefore she will follow-up in a year's time. If she develops any issues prior to that she will call for an earlier assessment. [facility] Medical History (Updated 01/09/24 @ 13:13 by Dillan Hayes MD) Chronic restrictive lung disease Pleural effusion on right Atelectasis Dyspnea Hoarseness Back pain JAYLA on CPAP Asthma-COPD overlap syndrome Social History Comment: NO COUNTS NEEDED Patient Tobacco Use Status: Never used Tobacco Review of Systems Const Denies fatigue and Denies night sweats ENT Denies change in voice, Denies lip swelling, Denies mouth pain, Reports nasal congestion, Reports nasal discharge and Denies tongue swelling Card Denies chest pain and Denies dyspnea on exertion Resp Reports cough and Denies dyspnea on exertion GI Denies abdominal pain Musc Denies no additional complaints and Reports back pain Neuro Denies Neuro-related abnormal movements Psych Denies no additional complaints Endo Denies fatigue Tae/Lymph Denies easy bleeding and Denies lymphadenopathy Aller/Immun Denies lip swelling and Denies tongue swelling Physical Exam Vital Signs: Last Vital Signs Pulse 51 10/07/24 15:40 BP 132/60 10/07/24 15:40 Pulse Ox 96 10/07/24 15:40 Oxygen Delivery Method Room Air 10/07/24 15:40 BMI result Body Mass Index 34.9 Const General: alert HEENT General nose exam: Abnormal external nose present and Nasal discharge present Neck Neck: Yes normal visual inspection, Yes full ROM and Yes no lymphadenopathy Chest Chest palpation & inspection: normal inspection of the chest Resp Auscultation: no crackles, no rhonchi, no wheezes and diminished lung sounds Cardio Rate: regular rate Rhythm: regular rhythm Heart sounds: S1 normal heart sound present and S2 normal heart sound present GI Palpation (GI): Soft to palpation and nontender Auscultation: normal bowel sounds General: Yes no CVA tenderness Back/Spine/Pelvis Back: no CVA tenderness Skin General skin exam: rashes and/or lesions noted Assessment & Plan Assessment & Plan (1) Asthma-COPD overlap syndrome: Code(s): J44.9 - Chronic obstructive pulmonary disease, unspecified Category: Medical (2) JAYLA on CPAP: Code(s): G47.33 - Obstructive sleep apnea (adult) (pediatric); Z99.89 - Dependence on other enabling machines and devices Category: Medical Plan Continue APAP therapy, [employer] [facility]. continue Trelegy 100 Benzonate as needed continue Singulair KELI as needed F/U 12 months Coding Level of Care Code Est Pt Level 4 (23242) Diagnoses Asthma-COPD overlap syndrome J44.9 JAYLA on CPAP G47.33; Z99.89 Time Spent (min) 16
--- OUTSIDE RECORDS SUMMARY | 2024-10-07 18:24 | XMS_ITS | Encounter Summary ---
Author Organization [facility] Address [address] [place] [id number] Care Team Providers Care Order Entry Clerk Name Role Phone Marshall Paige MD Primary Care Provider [phone] Reason for Visit * Reason Comments Medication Refill Encounter Details Date Type Department Care Team (Late st Contact Info) Description 02/09/2020 Refill [facility] [place] [facility] - Preventative Cardiology [address] [place] [phone] Toy Eduardo MD [address] [place] [address] Medication Refill Social History Tobacco Use Types Packs/Day Years Used Date Smoking Tobacco: Never Assessed Comments Unknown Sex and Gender Information Value Date Recorded Sex Assigned at Not on file Legal Sex Female 5:27 PM EDT Gender Identity Not on file Sexual Orientation Not on file documented as of this encounter Plan of Treatment Not on file documented as of this encounter Visit Diagnoses Diagnosis Pure hypercholesterolemia documented in this encounter Care Teams Order Entry Clerk Relationship Specialty Start Date End Date Marshall Paige MD [address] [address] PCP - General 10/11/18 documented as of this encounter
--- OUTSIDE RECORDS SUMMARY | 2024-10-07 18:24 | XMS_ITS | Encounter Summary ---
Author Organization [facility] Address [address] [place] [address] Care Team Providers Care Retail Associate Manager Bilingual Name Role Phone Marshall Paige MD Primary Care Provider Unavail able Palomo Barreto MD Unavailable [phone] Tanya Adams Unavailable Unavailable Encounter Details Date Type Department Care Team Description 12/12/2022 SCAN Medical Records [address] [place] [id number] Abstract, Provider Social History Tobacco Use Types Packs/Day Years Used Date Smoking Tobacco: Never Smokeless Tobacco: Never Alcohol Use Standard Drinks/Week Comments Never 0 (1 standard drink = 0.6 oz pur e alcohol) Sex Assigned at Date Recorded Not on file Job Start Date Occupation Industry Not on file Not on file Not on file documented as of this encounter Plan of Treatment Not on file documented as of this encounter Procedures Procedure Name Priority Date/Time Associated Diagnosis Comments OUTSIDE LAB Routine 12/12/2022 documented in this encounter Results * OUTSIDE LAB (12/12/2022) Provider Default LAB documented in this encounter Visit Diagnoses Not on filedocumented in this encounter Care Teams Retail Associate Manager Bilingual Relationship Specialty Start Date End Date Marshall Paige MD PCP - General Internal Medicine 10/03/18 Palomo Barreto MD [address] [place] [address] Dr Abernathy [address] [place] [address] [id number] Delivery Man Cardiovascular Disease 09/08/21 Tanya Adams PA [address] [place] [address] [place] [address] Specialist Cardiology 12/16/21 documented as of this encounter
--- OUTSIDE RECORDS SUMMARY | 2024-10-07 18:25 | XMS_ITS | Encounter Summary ---
Author Organization [facility] Address [address] [place] [address] Care Team Providers Care Cottonseed Meat Presser Name Role Phone Marshall Paige MD Primary Care Provider Unavail able Palomo Barreto MD Unavailable [phone] Tanya Adams Unavailable Unavailable Encounter Details Date Type Department Care Team Description 11/03/2022 SCAN Medical Records [address] [place] [id number] [place] [address] Social History Tobacco Use Types Packs/Day Years Used Date Smoking Tobacco: Never Smokeless Tobacco: Never Alcohol Use Standard Drinks/Week Comments Never 0 (1 standard drink = 0.6 oz pur e alcohol) Sex Assigned at Date Recorded Not on file Job Start Date Occupation Industry Not on file Not on file Not on file COVID-19 Exposure Response Date Recorded In the last 10 days, have yo u been in contact with someone who was confirmed or suspected to have Coronavirus/COVID-19? No / Unsure 11/02/2022 8:31 AM EDT documented as of this encounter Plan of Treatment Not on file documented as of this encounter Procedures Procedure Name Priority Date/Time Associated Diagnosis Comments OUTSIDE LAB Routine 11/03/2022 documented in this encounter Results * OUTSIDE LAB (11/03/2022) Provider Abstract LAB documented in this encounter Visit Diagnoses Not on filedocumented in this encounter Care Teams Cottonseed Meat Presser Relationship Specialty Start Date End Date Marshall Paige MD PCP - General Internal Medicine 10/03/18 Palomo Barreto MD [address] [place] [address] [place] [address] Ticket Printer And Tagger Cardiovascular Disease 09/08/21 Tanya Adams PA [address] [place] [address] [place] [address] Specialist Cardiology 12/16/21 documented as of this encounter
--- OUTSIDE RECORDS SUMMARY | 2024-10-07 18:25 | XMS_ITS ---
Author Organization [facility], [facility] Address [address] [place] [phone] Care Team Providers Care Silver Buffer Name Role Phone Marshall Paige Primary Care Provider Bart Whitten Unavailable [phone] REASON FOR VISIT RE:Ramona you 1940 Encounters Encounter Location Date Provider Diagnosis [facility] [address] [address] 08/13/2024 Bart Forde Plan Of Treatment Next Appt Details Provider Name:Bart mirza, 11/11/2024 02:40:00 PM, [address] [place] [address], [place] [address], [place], [address], Progress Notes * Ramona MANLEYDOB: [birth year] (84 yo F)Acc No.[id number]:08/13/2024 Patient:?Ramona MANLEY :1940???Age:84 Y???Sex:Female Address:[address] [place] [address], [address] * true * Date:? Generated for Printi ng/Faxing/eTransmitting on:?10/07/2024 06:25 PM EDT
--- OUTSIDE RECORDS SUMMARY | 2024-10-07 18:25 | XMS_ITS | Encounter Summary ---
Author Organization [facility] Address [address] [place] [address] Care Team Providers Care Government Relations Director Name Role Phone Marshall Paige MD Primary Care Provider Unavail able Palomo Barreto MD Unavailable [phone] Tanya Adams Unavailable Unavailable Encounter Details Date Type Department Care Team Description 09/24/2021 SCAN Medical Records [address] [place] [address] Abstract, Provider Social History Tobacco Use Types [...] suspected to have Coronavirus/COVID-19? No / Unsure 09/14/2021 1:37 PM EDT documented as of this encounter Plan of Treatment Not on file documented as of this encounter Procedures Procedure Name Priority Date/Time Associated Diagnosis Comments OUTSIDE LAB Routine 09/24/2021 documented in this encounter Results * OUTSIDE LAB (09/24/2021) Provider Abstract LAB documented in this encounter Visit Diagnoses Not on filedocumented in this encounter Care Teams Government Relations Director Relationship Specialty Start Date End Date Marshall Paige MD PCP - General Internal Medicine 10/03/18 Palomo Barreto MD [address] [place] [address] [place] [address] Oracle Programmer Cardiovascular Disease 09/08/21 Tanya Adams PA [address] [place] [address] [place] [address] Specialist Cardiology 12/16/21 documented as of this encounter
--- OUTSIDE RECORDS SUMMARY | 2024-10-07 18:25 | XMS_ITS | Encounter Summary ---
Author Organization [facility] Address [address] [place] [address] Care Team Providers Care Shade Cloth Finisher Name Role Phone Marshall Paige MD Primary Care Provider [phone] Encounter Details Date Type Department Care Team (Late st Contact Info) Description 12/08/2020 Scanned Document [facility] [place] - Preventative Cardiology [address] [facility], [facility] [address] [place] [phone] Toy Eduardo MD [address] [place] [address] Social History Tobacco Use Types Packs/Day Years Used Date Smoking Tobacco: Never Smokeless Tobacco: Never Alcohol Use Standard Drinks/Week Comments Never 0 (1 standard drink = 0.6 oz pur e alcohol) AUDIT-C Answer Date Recorded Q1: How often do you have a drink containing alc ohol? Never 09/25/2020 Average Number of Drinks Not on file 021 Frequency of Binge Drinking Not on file 09/10 Comments Unknown Sex and Gender Information Value Date Recorded Sex Assigned at Not on file Legal Sex Female 5:27 PM EDT Gender Identity Not on file Sexual Orientation Not on file documented as of this encounter Plan of Treatment Not on file documented as of this encounter Visit Diagnoses Not on filedocumented in this encounter Care Teams Shade Cloth Finisher Relationship Specialty Start Date End Date Marshall Paige MD [address] [address] PCP - General 10/11/18 documented as of this encounter
--- OUTSIDE RECORDS SUMMARY | 2024-10-07 18:25 | XMS_ITS | Encounter Summary ---
Author Organization [facility] Address [address] [place] [address] Care Team Providers Care Shipping Services Sales Representative Name Role Phone Marshall Paige MD Primary Care Provider Unavail able Palomo Barreto MD Unavailable [phone] Tanya Adams Unavailable Unavailable Reason for Visit * Reason Onset Date Comments other 05/31/2022 Carotid orders Encounter Details Date Type Department Care Team Description 05/31/2022 Telephone Cardio [facility] [address] [place] [address] [address] [place] [phone] Palomo Barreto MD [address] [place] [address] [phone] other (Carotid orders) Social History Tobacco Use Types Packs/Day Years [...] suspected to have Coronavirus/COVID-19? No / Unsure 05/25/2022 12:41 PM EST documented as of this encounter Miscellaneous Notes * Telephone Encounter - Tanya Adams PA-C - 06/07/2022 8:37 AM EST She follows [facility] vascular for her carotid artery stenosis. Maybe it is supposed to come from them. Thanks * Telephone Encounter - Princess Jeovany - 06/03/2022 11:49 AM EST Diagnostic Testing received a call from Ramona Manley today. She was asking about the Carotid test. I did not see the order in the system. Princess * Telephone Encounter - Dom Arndt - 05/31/2022 3:25 PM EST Patients daughter nisha is calling regarding carotid orders, states no order was put in for patient, would like to clarify. documented in this encounter Plan of Treatment Not on file documented as of this encounter Visit Diagnoses Not on filedocumented in this encounter Care Teams Shipping Services Sales Representative Relationship Specialty Start Date End Date Marshall Paige MD PCP - General Internal Medicine 10/03/18 Palomo Barreto MD [address] [place] [address] Dr Barbara [place] [phone] Outside Sales Account Manager Cardiovascular Disease 09/08/21 Tanya Adams PA [address] [place] [address] [place] [address] Specialist Cardiology 12/16/21 documented as of this encounter
--- OUTSIDE RECORDS SUMMARY | 2024-10-07 18:25 | XMS_ITS | Encounter Summary ---
Author Organization [facility] Address [address] [place] [address] Care Team Providers Care Sluice Tender Name Role Phone Marshall Paige MD Primary Care Provider Unavail able Palomo Barreto MD Unavailable [phone] Tanya Adams Unavailable Unavailable Encounter Details Date Type Department Care Team Description 03/18/2022 SCAN Medical Records [address] [place] [address] Abstract, Provider Social History Tobacco Use Types [...] Name Priority Date/Time Associated Diagnosis Comments OUTSIDE VASCULAR STUDY Routine 03/18/2022 documented in this encounter Results * OUTSIDE VASCULAR STUDY (03/18/2022) Provider Abstract CARDIOLOGY documented in this encounter Visit Diagnoses Not on filedocumented in this encounter Care Teams Sluice Tender Relationship Specialty Start Date End Date Marshall Paige MD PCP - General Internal Medicine 10/03/18 Palomo Barreto MD [address] [place] [address] Dr Abernathy [address] [place] [phone] Safety And Health Manager Cardiovascular Disease 09/08/21 Tanya Adams PA [address] [place] [address] [place] [address] Specialist Cardiology 12/16/21 documented as of this encounter
--- OUTSIDE RECORDS SUMMARY | 2024-10-07 18:25 | XMS_ITS | Encounter Summary ---
Author Organization [facility] Address [address] [place] [address] Care Team Providers Care Pretzel Twister Name Role Phone Marshall Paige MD Primary Care Provider Unavail able Palomo Barreto MD Unavailable [phone] Tanya Adams Unavailable Unavailable Encounter Details Date Type Department Care Team Description 09/16/2021 Paper And Prints Restorer Report Medical Records [address] [place] [address] Richelle Fernandes, PHOTOENGRAVING RETOUCHER Social History Tobacco Use Types Packs/Day Years [...] on filedocumented in this encounter Care Teams Pretzel Twister Relationship Specialty Start Date End Date Marshall Paige MD PCP - General Internal Medicine 10/03/18 Palomo Barreto MD [address] [place] [address] Dr Abernathy [address] [place] [address] Jewelry Sales Coordinator Cardiovascular Disease 09/08/21 Tanya Adams PA [address] [place] [address] [place] [address] Specialist Cardiology 12/16/21 documented as of this encounter
--- OUTSIDE RECORDS SUMMARY | 2024-10-07 18:26 | XMS_ITS | Encounter Summary ---
Author Organization [facility] Address [address] [place] [address] Care Team Providers Care Registration Manager Name Role Phone Marshall Paige MD Primary Care Provider Unavail able Palomo aBrreto MD Unavailable [phone] Tanya Adams Unavailable Unavailable Encounter Details Date Type Department Care Team Description 10/20/2021 SCAN Medical Records [address] [place] [address] Abstract, Provider Social History Tobacco Use Types [...] Name Priority Date/Time Associated Diagnosis Comments OUTSIDE EKG Routine 10/20/2021 OUTSIDE PLAIN FILM Routine 10/20/2021 documented in this encounter Results * OUTSIDE PLAIN FILM (10/20/2021) Provider Abstract RADIOLOGY * OUTSIDE EKG (10/20/2021) Provider Abstract CARDIOLOGY documented in this encounter Visit Diagnoses Not on filedocumented in this encounter Care Teams Registration Manager Relationship Specialty Start Date End Date Marshall Paige MD PCP - General Internal Medicine 10/03/18 Palomo Barreto MD [address] [place] [address] [place] [address] Skoog Machine Operator Cardiovascular Disease 09/08/21 Tanya Adams PA [address] [place] [address] Dr Abernathy [address] [place] [address] Specialist Cardiology 12/16/21 documented as of this encounter
--- OUTSIDE RECORDS SUMMARY | 2024-10-07 18:26 | XMS_ITS | Clinical Summary ---
Author Organization [facility], Address [address] [place] [address] [place] [address] Phone Care Team Providers Care Class A Regional Drivers Name Role Phone Marshall Paige MD Primary Care Provider [phone] Allergies No known active allergies Medications amLODIPine (NORVASC) 5 MG tablet TAKE 1.5 TABLETS BY MOUTH DAILY FOR 90 DAYS. 09/09/2021 Active chlorthalidone 25 MG tablet Take 25 mg by mouth 1 (one) time each day 11/19/2021 Active donepezil (ARICEPT) 5 MG tablet Take 5 mg by mouth 1 (one) time each day in the evening 10/15/2021 Active ezetimibe (ZETIA) 10 MG tablet Take 10 mg by mouth 1 (one) time each day 10/04/2021 Active pravastatin (PRAVACHOL) 40 MG tablet Take 40 mg by mouth 1 (one) time each day 11/04/2021 Active lisinopril 20 MG tablet Take 20 mg by mouth 11/18/2021 Active metoprolol succinate XL (TOPROL XL) 25 MG 24 hr tablet TAKE 1/2 TABLET BY MOUTH DAILY FOR 360 DAYS. 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 Hypertension 12/02/2021 Hyperlipidemia 12/02/2021 Chronic obstructive pulmonary disease 12/02/2021 Edema 12/02/2021 Immunizations Immunization Administration Dates Next Due Influenza Split High Dose Preservative Free IM 0 03/11/2018 Influenza, Unspecified 08/30/2018 Moderna SARS-COV-2 08/07/2020,07/09/2020 Pneumococcal Conjugate 13-Valent 07/21/2014 Pneumococcal Polysaccharide 03/26/2009 Td 03/26/2009 Tdap 08/30/2018 Zoster 06/10/2013 Social History Tobacco Use Types Packs/Day Years Used Date Smoking Tobacco: Never Comments Unknown Sex and Gender Information Value Date Recorded Sex Assigned at Not on file Legal Sex Female 1:32 PM EDT Gender Identity Not on file Sexual Orientation Not on file Last Filed Vital Signs Vital Sign Reading Time Taken Comments Blood Pressure 134/60 05/25/2023 4:05 PM EST Pulse - - Temperature - - Respiratory Rate - - Oxygen Saturation - - Inhaled Oxygen Concentration - - Weight - - Height - - Body Mass Index - - Plan of Treatment Upcoming Encounters Date Type Department Care Team (Late st Contact Info) Description 12/09/2024 4:00 PM EDT Office Visit [facility] [address] [place] [phone] Camilo Craven MD [address] [facility] [place] [place] [phone] Health Maintenance Due Date Last Done Comments Diabetes: Hemoglobin A1C 03/01/2022 Diabetes: Ophthalmology Exam 03/01/2022 Diabetes: Pedal Pulse Checked 03/01/2022 Diabetes: Sensory Foot Exam 03/01/2022 Diabetes: Visual Foot Exam 03/01/2022 Influenza Vaccine (Season Ended) 2025 03/13/2022, 08/30/2018, 03/11/2018, Additional history exists Pneumococcal Vaccine: 50+ Years Completed 07/21/2014, 03/26/2009 Hepatitis B Vaccine Aged Out No longe r eligible based on patient's age to complete this topic Insurance Medicare Unicare Care Teams Class A Regional Drivers Relationship Specialty Start Date End Date Marshall Paige MD [address] [place] [address] PCP - General Internal Medicine 11/09/21
--- OUTSIDE RECORDS SUMMARY | 2024-10-07 18:26 | XMS_ITS | Encounter Summary ---
Author Organization [facility] Address [address] [place] [address] Care Team Providers Care Gaming Pit Boss Name Role Phone Marshall Paige MD Primary Care Provider [phone] Encounter Details Date Type Department Care Team (Late st Contact Info) Description 08/16/2019 Scanned Document NEUROLOGY IP [address] [place] [address] Sherry Stevenson MD [address] [place] [address] Dr Aber[address] [place] [address] Social History Tobacco Use Types Packs/Day Years [...] on filedocumented in this encounter Care Teams Gaming Pit Boss Relationship Specialty Start Date End Date Marshall Paige MD Clifford Aure Leeann [facility] [address] [place] [address] PCP - General 10/11/18 documented as of this encounter
--- OUTSIDE RECORDS SUMMARY | 2024-10-07 18:26 | XMS_ITS | Encounter Summary ---
Author Organization [facility] Address [address] [place] [address] Care Team Providers Care Inspector And Mender Name Role Phone Marshall Paige MD Primary Care Provider Unavail able Palomo Barreto MD Unavailable [phone] Tanya Adams Unavailable Unavailable Encounter Details Date Type Department Care Team Description 07/05/2019 SCAN Medical Records [address] [place] [address] Abstract, Provider Social History Tobacco Use Types Packs/Day Years Used Date Smoking Tobacco: Never Smokeless Tobacco: Never Sex Assigned at Date Recorded Not on file Job Start Date Occupation Industry Not on file Not on file Not on file documented as of this encounter Plan of Treatment Not on file documented as of this encounter Procedures Procedure Name Priority Date/Time Associated Diagnosis Comments OUTSIDE EKG Routine 07/05/2019 documented in this encounter Results * OUTSIDE EKG (07/05/2019) Provider Abstract CARDIOLOGY documented in this encounter Visit Diagnoses Not on filedocumented in this encounter Care Teams Inspector And Mender Relationship Specialty Start Date End Date Marshall Paige MD PCP - General Internal Medicine 10/03/18 Palomo Barreto MD [address] [place] [address] [place] [address] Reo Asset Manager Cardiovascular Disease 09/08/21 Tanya Adams PA [address] [place] [address] [place] [address] Specialist Cardiology 12/16/21 documented as of this encounter
--- OUTSIDE RECORDS SUMMARY | 2024-10-07 18:26 | XMS_ITS | Encounter Summary ---
Author Organization [facility] Address [address] [place] [address] Care Team Providers Care Railroad Carman Name Role Phone Marshall Paige MD Primary Care Provider Unavail able Palomo aBrreto MD Unavailable [phone] Tanya Adams Unavailable Unavailable Encounter Details Date Type Department Care Team Description 03/31/2021 SCAN Medical Records [address] [place] [address] Abstract, Provider Social History Tobacco Use Types [...] Name Priority Date/Time Associated Diagnosis Comments OUTSIDE PLAIN FILM Routine 03/31/2021 documented in this encounter Results * OUTSIDE PLAIN FILM (03/31/2021) Provider Abstract RADIOLOGY documented in this encounter Visit Diagnoses Not on filedocumented in this encounter Care Teams Railroad Carman Relationship Specialty Start Date End Date Marshall Paige MD PCP - General Internal Medicine 10/03/18 Palomo Barreto MD [address] [place] [address] [place] [address] Iv Rn Cardiovascular Disease 09/08/21 Tanya Adams PA [address] [place] [address] [place] [address] Specialist Cardiology 12/16/21 documented as of this encounter
--- OUTSIDE RECORDS SUMMARY | 2024-10-07 18:26 | XMS_ITS ---
Author Organization [facility] Address [address] [address] Care Team Providers Care Passenger Train Braker Name Role Phone [place] Paige Primary Care Provider UnavailBart Aguilar Unavailable [phone] Jamie Wiseman Unavailable [phone] REASON FOR VISIT Neuropsych Eval Medications Medication SIG (Take, Route, Frequency, Duration) Notes Start Date End Date Status Sertraline HCl 50 MG 1 tablet Orally Onc e a day for 30 days Active Fish Oil 1000 MG 1 capsule Orally Onc e a day Not-Taking Basaglar KwikPen 100 UNIT/ML as directed Subcutaneous Not-Taking ProAir HFA 108 (90 Base) MCG/ACT 2 puffs as needed Inhalation every 4 hrs Not-Taking Ngoc as directed Not-Taki ng Chlorthalidone 25 MG 1 tablet in the morning with food Orally Once a day for 30 day(s) Active Ezetimibe 10 MG 1 tablet Orally Once a day for 30 day(s) Active Vitamin D as directed Not-Taki ng Humulin as directed Not-Taki ng Carvedilol 6.25 MG Oral for 90 Active hydroCHLOROthiazide 12.5 MG 1 capsule in the morning Orally Once a day Active NovoLOG FlexPen 100 UNIT/ML as directed Subcutaneous Active Donepezil HCl 10 MG 1 tablet at bedtime Orally Once a day Active Basaglar KwikPen 100 UNIT/ML INJECT 34-36 UNITS SUBCUTANEOUSLY ONCE A DAY AT BEDTIME Subcutaneous for 84 Active Calcium 600 MG 1 tablet with meals Orally Twice a day Active Clobetasol Propionate 0.05 % 1 application to affected area Externally Twice a day Active Cranberry 3600mg Orally once a day Active CPAP auto titrating machine with pressure 5-20 and pt's current mask 1 1 for 1 dose 03/16/2016 Active glyBURIDE 5 MG 2 tablet Orally Once a day Active Lisinopril 10 MG 1 tablet Orally BID Active Pravastatin Sodium 40 MG 1 tablet Orally Once a day Active amLODIPine Besylate 10 MG 1 tablet Orall y Once a day Active Aspirin 81 mg as directed by mouth daily Active Trelegy Ellipta 100-62.5-25 MCG/ACT 1 puff Inhalation Once a day Active Anastrozole 1 MG 1 tablet Orally Once a day Active Gabapentin 100 MG 1 capsule at bedtime Orally Once a day Active Cholestyramine 4 GM/DOSE 1 scoop Orally Once a day Active Aspir-Low 81 MG 1 tablet Orally Once a day Active Vitamin D3 250 MCG (98580 UT) 1 capsule Orally Once a day Active Culturelle Probiotics - as directed Orally Active Estradiol 0.1 MG/GM as directed Vaginal Active Montelukast Sodium 10 MG 1 tablet Orally Once a day Active Ketoconazole 2 % 1 application Externally Once a day Active Ketoconazole 2 % as directed Externally Active Encounters Encounter Location Date Provider Diagnosis [facility] [address] [address] 09/30/2024 Jamie Wiseman Plan Of Treatment Next Appt Details Provider Name:Bart mirza, 11/11/2024 02:40:00 PM, [address] [place] [address], [place], [address], Progress Notes * Ramona MANLEYDOB: 0 (84 yo F)Acc No.[id number]:09/30/2024 Patient:?Ramona MANLEY Provider:?Jamie Wiseman, PH.D. :1940???Age:84 Y???Sex:Female D ate:09/30/2024 Address:[address] [place], [place] [id number] Pcp:[place] Paige Subjective: * Chief Complaints: * ???1. Neuropsych Eval. * Medical History:? * Medications:?Taking Ketocona zole 2 % Cream 1 application Externally Once a day , Taking Ketoconazole 2 % Shampoo as directed Externally , Taking Estradiol 0.1 MG/GM Cream as directed Vaginal , Taking Montelukast Sodium 10 MG Tablet 1 tablet Orally Once a day , Taking Gabapentin 100 MG Capsule 1 capsule at bedtime Orally Once a day , Taking Cholestyramine 4 GM/DOSE Powder 1 scoop Orally Once a day , Taking Aspir-Low 81 MG Tablet Delayed Release 1 tablet Orally Once a day , Taking Vitamin D3 250 MCG (42850 UT) Capsule 1 capsule Orally Once a day , Taking Culturelle Probiotics - Tablet Chewable as directed Orally , Taking Trelegy Ellipta 100-62.5-25 MCG/ACT Aerosol Powder Breath Activated 1 puff Inhalation Once a day , Taking Anastrozole 1 MG Tablet 1 tablet Orally Once a day , Taking amLODIPine Besylate 10 MG Tablet 1 tablet Orally Once a day , Taking Aspirin 81 mg as directed by mouth daily , Taking Pravastatin Sodium 40 MG Tablet 1 tablet Orally Once a day , Taking Clobetasol Propionate 0.05 % Cream 1 application to affected area Externally Twice a day , Taking Cranberry 3600mg Capsule Orally once a day , Taking CPAP auto titrating machine with pressure 5-20 with warm humidification and pt's current mask 1 1 , Taking glyBURIDE 5 MG Tablet 2 tablet Orally Once a day , Taking Lisinopril 10 MG Tablet 1 tablet Orally BID , Taking Calcium 600 MG Tablet 1 tablet with meals Orally Twice a day , Taking Donepezil HCl 10 MG Tablet 1 tablet at bedtime Orally Once a day , Taking Basaglar KwikPen 100 UNIT/ML Solution Pen-injector INJECT 34-36 UNITS SUBCUTANEOUSLY ONCE A DAY AT BEDTIME Subcutaneous , Taking hydroCHLOROthiazide 12.5 MG Capsule 1 capsule in the morning Orally Once a day , Taking NovoLOG FlexPen 100 UNIT/ML Solution Pen-injector as directed Subcutaneous , Taking Chlorthalidone 25 MG Tablet 1 tablet in the morning with food Orally Once a day , Taking Ezetimibe 10 MG Tablet 1 tablet Orally Once a day , Taking Carvedilol 6.25 MG Tablet Oral , Taking Sertraline HCl 50 MG Tablet 1 tablet Orally Once a day , Not-Taking/PRN Vitamin D as directed , Not-Taking/PRN Humulin as directed , Not-Taking/PRN ProAir HFA 108 (90 Base) MCG/ACT Aerosol Solution 2 puffs as needed Inhalation every 4 hrs , Not-Taking/PRN Ngoc as directed , Not-Taking/PRN Fish Oil 1000 MG Capsule 1 capsule Orally Once a day , Not-Taking/PRN Basaglar KwikPen 100 UNIT/ML Solution Pen-injector as directed Subcutaneous Objective: * Vitals:? Assessment: Plan: * Treatment: * * Electronic signature of Concha Wiseman , PH.D on 10/07/2024 at 06:25 PM EDT Sign off status: Pending * Provider:?Jamie Wiseman, PH.D. Date:?0 09/30/2024 Generated for Ajit raymond/Karen/eTransmitting on:?10/07/2024 06:25 PM EDT
--- OUTSIDE RECORDS SUMMARY | 2024-10-07 18:26 | XMS_ITS | Encounter Summary ---
Author Organization [facility] Address [address] [place] [address] Care Team Providers Care Wood Room Hand Name Role Phone [place] Paige MD Primary Care Provider [phone] [place] Paige MD Primary Care Provider [phone] Reason for Visit * Reason Comments Medication Refill Encounter Details Date Type Department Care Team (Late st Contact Info) Description 07/17/2016 Refill [facility] Heart & Vascular [place] - Preventative Cardiology [address] [place] [phone] Toy Eduardo MD [address] [place] [address] Medication Refill Social History Tobacco Use Types [...] as of this encounter Visit Diagnoses Diagnosis Other and unspecified hyperlipidemia- Primary documented in this encounter Care Teams Wood Room Hand Relationship Specialty Start Date End Date [place] Paige MD [address] [address] PCP - General 10/11/18 [place] Paige MD [address] [place] [address] PCP - General 10/10/18 documented as of this encounter
--- OUTSIDE RECORDS SUMMARY | 2024-10-07 18:26 | XMS_ITS | Encounter Summary ---
Author Organization [facility] Address [address] [place] [address] Care Team Providers Care Therapist Name Role Phone [place] Paige MD Primary Care Provider [phone] [place] Paige MD Primary Care Provider [phone] Encounter Details Date Type Department Care Team (Late st Contact Info) Description 07/01/2016 Scanned Document [facility] Heart & Vascular [place] - Preventative Cardiology [address] [place] [address], [facility] [address] [place] [phone] Toy Eduardo MD [address] [place] [address] Social History Tobacco Use Types Packs/Day Years [...] on filedocumented in this encounter Care Teams Therapist Relationship Specialty Start Date End Date [place] Paige MD [address] [address] PCP - General 10/11/18 [place] Paige MD [address] [address] PCP - General 10/10/18 documented as of this encounter
--- OUTSIDE RECORDS SUMMARY | 2024-10-07 18:26 | XMS_ITS | Encounter Summary ---
Author Organization [facility] Address [address] [place] [address] Care Team Providers Care Cyber Incident Analyst Name Role Phone [place] Paige MD Primary Care Provider [place] Paige MD Primary Care Provider [phone] Encounter Details Date Type Department Care Team (Late st Contact Info) Description 07/01/2016 Scanned Document [facility] Heart & Vascular [place] - Preventative Cardiology [address] [place] [address], [facility] [address] [place] [phone] Toy Eduardo MD [address] [place] [address] Social History Tobacco Use Types Packs/Day Years [...] on filedocumented in this encounter Care Teams Cyber Incident Analyst Relationship Specialty Start Date End Date [place] Paige MD [address] [address] PCP - General 10/11/18 [place] Paige MD [address] [address] PCP - General 10/10/18 documented as of this encounter
--- OUTSIDE RECORDS SUMMARY | 2024-10-07 18:26 | XMS_ITS | Encounter Summary ---
Author Organization [facility] Address [address] [place] [address] Care Team Providers Care Events Specialist Name Role Phone [place] Paige MD Primary Care Provider Unavail able Palomo Barreto MD Unavailable [phone] Tanya Adams Unavailable Unavailable Encounter Details Date Type Department Care Team Description 09/13/2021 Release of Information Medical Records [address] [place] [id number] [place] [address] Social History Tobacco Use Types Packs/Day Years [...] on filedocumented in this encounter Care Teams Events Specialist Relationship Specialty Start Date End Date [place] Paige MD PCP - General Internal Medicine 10/03/18 Palomo Barreto MD [address] [place] [address] [place] [address] Hydroelectric Plant Maintainer Cardiovascular Disease 09/08/21 Tanya Adams PA [address] [place] [address] [place] [address] Specialist Cardiology 12/16/21 documented as of this encounter
--- OUTSIDE RECORDS SUMMARY | 2024-10-07 18:26 | XMS_ITS | Encounter Summary ---
Author Organization [facility] Address [address] [place] [address] Care Team Providers Care House Servant Name Role Phone [place] Paige MD Primary Care Provider Unavail able Palomo Barreto MD Unavailable [phone] Tanya Adams Unavailable Unavailable Encounter Details Date Type Department Care Team Description 02/18/2020 [facility] Medical Records [address] [place] [address] Warner Escobar MD Social History Tobacco Use Types Packs/Day Years [...] Associated Diagnosis Comments OUTSIDE VASCULAR STUDY Routine 02/18/2020 documented in this encounter Results * OUTSIDE VASCULAR STUDY (02/18/2020) Provider Abstract CARDIOLOGY documented in this encounter Visit Diagnoses Not on filedocumented in this encounter Care Teams House Servant Relationship Specialty Start Date End Date [place] Paige MD PCP - General Internal Medicine 10/03/18 Palomo Barreto MD [address] [place] [address] [place] [address] Electromechanical Equipment Assembler Cardiovascular Disease 09/08/21 Tanya Adams PA [address] [place] [address] [place] [address] Specialist Cardiology 12/16/21 documented as of this encounter
--- OUTSIDE RECORDS SUMMARY | 2024-10-07 18:26 | XMS_ITS | Encounter Summary ---
Author Organization [facility] Address [address] [place] [address] Care Team Providers Care Commercial Management Accountant Name Role Phone [place] Paige MD Primary Care Provider Unavail able Palomo Barreto MD Unavailable [phone] Tanya Adams Unavailable Unavailable Encounter Details Date Type Department Care Team Description 10/01/2020 [facility] Medical Records [address] [place] [id number] Abstract, Provider Social History Tobacco Use Types [...] Date/Time Associated Diagnosis Comments OUTSIDE LAB Routine 10/01/2020 documented in this encounter Results * OUTSIDE LAB (10/01/2020) Provider Abstract LAB documented in this encounter Visit Diagnoses Not on filedocumented in this encounter Care Teams Commercial Management Accountant Relationship Specialty Start Date End Date [place] Paige MD PCP - General Internal Medicine 10/03/18 Palomo Barreto MD [address] [place] [address] [place] [address] Dental Therapist Cardiovascular Disease 09/08/21 Tanya Adams PA [address] [place] [address] [place] [address] Specialist Cardiology 12/16/21 documented as of this encounter
--- OUTSIDE RECORDS SUMMARY | 2024-10-07 18:26 | XMS_ITS | Patient Health Record ---
Author Organization [facility] Address [address] [address] Care Team Providers Care Java Security Architect Name Role Phone Marshall Paige Primary Care Provider Bart Whitten Unavailable [phone] Jamie Wiseman Unavailable [phone] Allergies No Known Allergies Results Component Value Reference Range Notes Neuropsychological Testing Reviewed date:08/15/2024 10:04:56 AM Interpretation: Performing Lab: Notes/Report: [employer]'s [employer] Refe rral Reviewed date:07/10/2024 02:32:01 PM Interpretation: Performing Lab: Notes/Report: PET-*Brain CPT 92384 Reviewed date:07/22/2024 12:07:28 PM Interpretation: Performing Lab: Notes/Report: MR-Brain (C-) CPT 30377 Reviewed date:08/02/2024 05:14:37 PM Interpretation: Performing Lab: Notes/Report: [facility] Accession Number: [id number] Patient Name: Ramona Manley Date of : 1940 Date of Exam: 07-16-2024 Referring Physician: Bart Forde [address] [address] Exam: MR Brain (C-) CPT 32264 Room Description: [facility] 1.5 MR Brain (C-) CPT 26361 INDICATION: Cognitive changes TECHNIQUE: Multiplanar, multisequence MRI of the brain was performed without contrast. COMPARISON: None. FINDINGS: BRAIN and EXTRA-AXIAL SPACES: The midline structures, including sella, corpus callosum, and craniocervical junction, are unremarkable. There is no mass effect, midline shift, or effacement of the basal cisterns. On diffusion weighted imaging, there are no regions of restricted diffusion to indicate an acute or subacute infarct. There is no evidence of intracranial hemorrhage on susceptibility sensitive sequence. Mild to moderate scattered foci of T2 prolongation are seen in the periventricular, deep, and subcortical white matter as well as the mid sendy. Ventricles, cisterns, and sulci are mildly prominent, consistent with volume loss, without hydrocephalus. No abnormal extra-axial fluid collections are seen. Meningeal surfaces are normal. Major intracranial flow voids are present. EXTRACRANIAL SOFT TISSUES: There have been lens replacements bilaterally. Paranasal sinuses are unremarkable. Left mastoid effusion is seen. Nasopharyngeal contour is symmetric. BONES: Marrow signal is preserved. IMPRESSION: 1. No acute/subacute infarct, mass, hemorrhage, or other acute intracranial abnormality. 2. Mild to moderate T2/FLAIR hyperintense foci in the white matter, nonspecific but most likely reflecting chronic small vessel disease. Electronically Signed By: Leslie Lynch MD [facility] Accession Number: [id number] Patient Name: Ramona Manley Date of : 1940 Date of Exam: 07-16-2024 Referring Physician: Bart Forde [address] [place] [address] Exam: MR Brain (C-) CPT 64737 Room Description: [facility] 1.5 MR Brain (C-) CPT 41875 INDICATION: Cognitiv e changes TECHNIQUE: Multiplanar, multisequence MRI of the brain was performed without contrast. COMPARISON: None. FINDINGS: BRAIN and EXTRA-AXIA L SPACES: The midline structures, including sella, corpus callosum, and craniocervical junction, are unremarkable. There is no mass effect, midline shift, or effacement of the basal cisterns. On diffusion weighte d imaging, there are no regions of restricted diffusion to indicat e an acute or subacute infarct. There is no evidence of intracranial hemorrhage on susceptibility sensitive sequence. Mild to moderate scattered foci of T2 prolongation are seen in the periventricular, deep, and subcortical white matter as well as the mid sendy. Ventricles, cisterns , and sulci are mildly prominent, consistent with volume loss, without hydrocephalus. No abnormal extra-axial fluid collections are seen . Meningeal surfaces are normal. Major intracranial flow voids are present. EXTRACRANIAL SOFT TISSUES: There have been lens replacements bilaterally. Paranasal sinuses are unremarkable. Left mastoid effusion is seen. Nasopharyngeal contour is symmetric. BONES: Marrow signal is preserved. IMPRESSION: 1. No acute/subacute infarct, mass, hemorrhage, or other acute intracranial abnormality. 2. Mild to moderate T2/FLAIR hyperintense foci in the white matter, nonspecific but most likely reflecting chronic small vessel disease. Electronically Eusebia d By: Leslie Lynch MD PET-*Brain CPT 40381 Reviewed date:08/02/2024 05:10:12 PM Interpretation: Performing Lab: Notes/Report: [facility] PET/CT Imaging Accession Number: [id number] Patient Name: Ramona Manley Date of : 1940 Date of Exam: 08-01-2024 Referring Physician: Bart Forde [address] [place] [address] Exam: PT Brain Imaging (PET) Metabolic Evaluation CPT 21832 Room Description: [facility] Pt4 History: 84-year-old female with mild progressive cognitive impairment. Evaluate for Alzheimer's disease. Procedure: Patient's serum glucose at time of injection was 100 mg/dL. The patient was made comfortable in a dimly light quiet room. An IV was placed in the right antecubital fossa. 5 minutes later, 10.95 mCi of fluorine 18 FDG was injected IV. The patient was instructed to keep eyes open and relax. 39 minutes later, emission images were obtained on a [employer] PET CT system. The CT was obtained at the same levels without IV or oral contrast. Following attenuation correction using CT images, axial, sagittal, and coronal images were reconstructed. Note is made that CT images are used for attenuation correction and image localization and are not performed to replace diagnostic quality CT. Findings: Correlation is made with MRI brain without contrast dated 07/16/2024. Images are technically adequate. Gross structure of the brain is unremarkable. There is mild asymmetric decreased metabolism in the right parietal and lateral temporal cortex. Elsewhere, the cortical metabolism is preserved and normal relative to basal ganglion and cerebellar activity. Posterior cingulate cortical/precuneus activity is preserved. There is preservation of activity within the basal ganglia and thalami. Cerebellar metabolism is symmetric and within normal limits. Impression: Mild asymmetric hypometabolic activity in the right parietal and lateral temporal cortex, nonspecific. Given the preserved posterior cingulate gyrus/cutaneous activity, findings are not typical of Alzheimer's type dementia. Electronically Signed By: Rocio Young MD [facility] PET/CT Imaging Accession Number: [id number] Patient Name: Ramona Manley Date of : 1940 Date of Exam: 08-01-2024 Referring Physician: Bart Forde [address] [place] [address] Exam: PT Brain Imaging (PET) Metabolic Evaluation CPT 02826 Room Description: [facility] Pt4 History: 84-year-old female with mild progressive cognitive impairment. Evaluate for Alzheimer's disease. Procedure: Patient's serum glucose at time of injection was 100 mg/dL. The patient was made comfortable in a dimly light quiet room. An IV was placed in the right antecubital fossa. 5 minutes later, 10.95 mCi of fluorine 18 FDG was injected IV. The patient was instructed to keep eyes open and relax. 39 minutes later, emission images were obtained on a [employer] PET CT system. The CT was obtained at the same levels without IV or oral contrast. Following attenuation correction using CT images, axial, sagittal, and coronal images were reconstructed. Note is made that CT images are used for attenuation correction and image localization and are not performed to replace diagnostic quality CT. Findings: Correlatio n is made with MRI brain without contrast dated 07/16/2024. Images are technically adequate. Gross structure of the brain is unremarkable. There is mild asymmetric decreased metabolism in the right parietal and lateral temporal cortex. Elsewhere, the cortical metabolism is preserved and normal relative to basal ganglion and cerebellar activity. Posterior cingulate cortical/precuneus activity is preserved. There is preservation of activity within the basal ganglia and thalami. Cerebellar metabolism is symmetric and within normal limits. Impression: Mild asymmetric hypometabolic activity in the right parietal and lateral temporal cortex, nonspecific. Given the preserved posterior cingulate gyrus/cutaneous activity, findings are not typical of Alzheimer's type dementia. Electronically Eusebia d By: Rocio Young MD MR-Brain (C-) CPT 27989 Reviewed date:07/15/2024 10:08:18 AM Interpretation: Performing Lab: Notes/Report: TSH Reviewed date:07/13/2024 08:17:05 PM Interpretation: Performing Lab:NL2, [email or web address] Yulissa Gonzalez Notes/Report: 0; 0 FASTING:NO FASTING: NO TSH 1.24 0.40-4.50 mIU/L VITAMIN B12 Reviewed date:07/13/2024 08:17:05 PM Interpretation: Performing Lab:NL2, [email or web address] Yulissa Gonzalez Notes/Report: 0; 0 FASTING:NO FASTING: NO VITAMIN B12 018 130-9099 pg/mL Please Note: Although the reference range for vitamin B12 is 200-1100 pg/mL, it has been reported that between 5 and 10% of patients with values between 200 and 400 pg/mL may experience neuropsychiatric and hematologic abnormalities due to occult B12 deficiency; less than 1% of patients with values above 400 pg/mL will have symptoms. Reason For Referral No Information Medications Medication SIG (Take, Route, Frequency, Duration) Notes Start Date End Date Status Pravastatin Sodium 40 MG 1 tablet Orally Once a day Active Clobetasol Propionate 0.05 % 1 application to affected area Externally Twice a day Active amLODIPine Besylate 10 MG 1 tablet Orall y Once a day Active Sertraline HCl 50 MG 1 tablet Orally Onc e a day for 30 days Active Aspirin 81 mg as directed by mouth daily Active Cranberry 3600mg Orally once a day Active Vitamin D as directed Not-Faustinoi ng Aspir-Low 81 MG 1 tablet Orally Once a day Active Humulin as directed Not-Taki ng Carvedilol 6.25 MG Oral for 90 Active Trelegy Ellipta 100-62.5-25 MCG/ACT 1 puff Inhalation Once a day Active Fish Oil 1000 MG 1 capsule Orally Onc e a day Not-Taking Anastrozole 1 MG 1 tablet Orally Once a day Active Basaglar KwikPen 100 UNIT/ML as directed Subcutaneous Not-Taking Vitamin D3 250 MCG (43787 UT) 1 capsule Orally Once a day Active ProAir HFA 108 (90 Base) MCG/ACT 2 puffs as needed Inhalation every 4 hrs Not-Taking Culturelle Probiotics - as directed Orally Active Ngoc as directed Not-Taki ng Estradiol 0.1 MG/GM as directed Vaginal Active Chlorthalidone 25 MG 1 tablet in the morning with food Orally Once a day for 30 day(s) Active Montelukast Sodium 10 MG 1 tablet Orally Once a day Active Ezetimibe 10 MG 1 tablet Orally Once a day for 30 day(s) Active Ketoconazole 2 % 1 application Externally Once a day Active hydroCHLOROthiazide 12.5 MG 1 capsule in the morning Orally Once a day Active Ketoconazole 2 % as directed Externally Active NovoLOG FlexPen 100 UNIT/ML as directed Subcutaneous Active Gabapentin 100 MG 1 capsule at bedtime Orally Once a day Active Cholestyramine 4 GM/DOSE 1 scoop Orally Once a day Active CPAP auto titrating machine with pressure 5-20 and pt's current mask 1 1 for 1 dose 03/16/2016 Active glyBURIDE 5 MG 2 tablet Orally Once a day Active Donepezil HCl 10 MG 1 tablet at bedtime Orally Once a day Active Basaglar KwikPen 100 UNIT/ML INJECT 34-36 UNITS SUBCUTANEOUSLY ONCE A DAY AT BEDTIME Subcutaneous for 84 Active Lisinopril 10 MG 1 tablet Orally BID Active Calcium 600 MG 1 tablet with meals Orally Twice a day Active Social History Tobacco use other than smoking: Question Answer Notes Are you an other tobacco user? No Problems Problem Type SNOMED Code ICD Code Onset Dates Problem Status W/U Status Risk Notes Problem 93788926 Anxiety (F41.9) Active confirmed Problem 158179198 Cognitive impairment, mild, so stated (G31.84) Active confirmed Problem 13352717 Diabetes (E11.9) Active confirmed Problem 75607811 Mood disorder (F39) Active confirmed Problem Sleep apnea (09672617) Sleep apnea (G47.30) Active confirmed Problem Arthritis (1813569) Arthritis (M19.90) Active confirmed Problem Altered thought processes (96882244) Cognitive changes (R41.89) Active confirmed Problem mood swings (finding) (69934034) Mood changes (F39) Active confirmed Vital Signs Heart Rate 71 /min 08/06/2024 Blood pressure diastolic 68 mm Hg 08/06/2024 Height 63 in 08/06/2024 Blood pressure systolic 146 mm Hg 08/06/2024 Weight 202 lbs 08/06/2024 BMI 35.78 kg/m2 08/06/2024 Encounters Encounter Location Date Provider Diagnosis [facility], [address] [address] 09/30/2024 Jamie Wiseman [address] [address] 07/09/2024 [facility] Cognitive changes R41.89 ; Mood changes F39 ; Sleep apnea G47.30 and Diabetes E11.[address] [address] 08/06/2024 [facility] Cognitive changes R41.89 ; Anxiety F41.9 ; Diabetes E11.9 and Sleep apnea G47.[address] [address] 04/30/[address] [address] 06/03/[address] [address] 06/14/[address] [address] 07/10/2024 [facility] Cognitive changes R41.[address] [address] 08/06/[address] [address] 07/19/[address] [address] 08/12/[address] [address] 08/13/2024 [facility] Assessments Encounter Date Diagnosis (ICD Code) Assessment Notes Treatment Notes Treatment Clinical Notes Section Notes 07/09/2024 Cognitive changes (ICD-10 - R41.89) Patient last seen in 2020 at which time she was diagnosed with mild cognitive impairment. I did explain today that I think that there is a relatively high likelihood that the patient's condition has progressed to a formal dementia, most likely of Alzheimer's type. As stated above we spent a long time discussing both pharmacologic and nonpharmacologic treatment opportunities as well as additional workup to help clarify diagnosis. There certainly are some atypical features to the patient's presentation, particularly her high level of insight. We discussed utility of PET scan and neuropsychological evaluation. The patient's family wanted to proceed with both if possible. For psychosocial supports we also put in a referral to the Alzheimer's Association as well. With regard to medications the patient might be candidate to add to the donepezil including Namenda. We are going to hold off on any primary memory medications though today in favor of a trial of Zoloft to see if we can better manage accompanying mood complaints that are present currently. This might also ultimately have a bigger impact on cognitive level of functioning as well as mood. Common side effects and risks reviewed and low dosage sertraline started with plan follow-up again in a month. Patient continues on CPAP and should continue to do so. Patient also needs to continue to pay close attention to her blood sugar management as this might also be a factor in both mood and cognitive difficulties. 07/09/2024 Mood changes (ICD-10 - F39) 07/10/2024 Cognitive changes (ICD-10 - R41.89) 08/06/2024 Anxiety (ICD-10 - F41.9) 08/06/2024 Cognitive changes (ICD-10 - R41.89) Patient with changes on PET scan suggesting that current presentation likely in excess of simply normal aging but as stated above in the report the distribution is not necessarily suggestive of a condition like Alzheimer's either. Patient certainly does have multiple contributing factors including known sleep disorder for which she is recommended to continue CPAP. There is also likely a component from underlying anxiety for which we will increase his sertraline today. Other possibilities include the patient's blood sugars and the patient is advised to best manage her diabetes as this likely will have some cognitive benefits though none of the above in and of themselves likely explain the PET scan findings. There might be a vascular component to the patient's presentation despite no overt evidence of neurovascular issues on the MRI. This is something that perhaps we will learn though through the neuropsychological evaluation at which time we will also get valuable information about current cognitive strengths and weaknesses as well. Therefore at this point we have decided to avoid any major medication adjustments except for the sertraline and await results of the neuropsychological eval. I would like to meet with the patient as soon as results are available as they will largely determine our next steps both pharmacologically and nonpharmacologically. 07/09/2024 Sleep apnea (ICD-10 - G47.30) 08/06/2024 Diabetes (ICD-10 - E11.9) 07/09/2024 Diabetes (ICD-10 - E11.9) 08/06/2024 Sleep apnea (ICD-10 - G47.30) 07/09/2024 Other Today's visit w as 55 minutes in length with greater than 50 minutes spent counseling and coordinating care. Plan Of Treatment Next Appt Details Provider Name:Bart Chavez hermes, 11/11/2024 02:40:00 PM, [address] [facility], [place] [address], [place], [address], Insurance Providers Payer Name Payer Address Payer Phone Subscriber Number Group Number Insured Name Patient Relationship to Insured Coverage Start Date Coverage End Date MEDICARE [address] [place], [place] [id number] Ramona Manley Self - patient is the insured [employer] [address] [place], [place] [id number] Ramona Manley Self - patient is the insured Medical (General) History Medical History History ICD Code Obstructive Sleep Apnea Cholesterol DM MCI COPD Arthritis M19.90 Surgical History Surgery Date(Month/Year) toe lumpectomy appendectomy
--- OUTSIDE RECORDS SUMMARY | 2024-10-07 18:26 | XMS_ITS | Encounter Summary ---
Author Organization [facility] Address [address] [place] [address] Care Team Providers Care Photostatic Copy Maker Name Role Phone Marshall Paige MD Primary Care Provider Unavail able Palomo Barreto MD Unavailable [phone] Tanya Adams Unavailable Unavailable Encounter Details Date Type Department Care Team Description 11/20/2020 [facility] Medical Records [address] [place] [phone] Abstract, Provider Social History Tobacco Use Types [...] Associated Diagnosis Comments OUTSIDE VASCULAR STUDY Routine 11/20/2020 documented in this encounter Results * OUTSIDE VASCULAR STUDY (11/20/2020) Provider Abstract CARDIOLOGY documented in this encounter Visit Diagnoses Not on filedocumented in this encounter Care Teams Photostatic Copy Maker Relationship Specialty Start Date End Date Marshall Paige MD PCP - General Internal Medicine 10/03/18 Palomo Barreto MD [address] [place] [address] [place] [address] Web Content Coordinator Cardiovascular Disease 09/08/21 Tanya Adams PA [address] [place] [address] [place] [address] Specialist Cardiology 12/16/21 documented as of this encounter
--- OUTSIDE RECORDS SUMMARY | 2024-10-07 18:26 | XMS_ITS | Encounter Summary ---
Author Organization [facility] Address [address] [place] [address] Care Team Providers Care Frozen Food Department Manager Name Role Phone Marshall Paige MD Primary Care Provider Unavail able Palomo Barreto MD Unavailable [phone] Tanya Adams Unavailable Unavailable Encounter Details Date Type Department Care Team Description 10/22/2015 [facility] Medical Records [address] [place] [id number] Social History Tobacco Use Types Packs/Day Years [...] on filedocumented in this encounter Care Teams Frozen Food Department Manager Relationship Specialty Start Date End Date Marshall Paige MD PCP - General Internal Medicine 10/03/18 Palomo Barreto MD [facility] [address] [place] [id number] Grounding Engineer Cardiovascular Disease 09/08/21 Tanya Adams PA [facility] [place] [address] Specialist Cardiology 12/16/21 documented as of this encounter
--- OUTSIDE RECORDS SUMMARY | 2024-10-07 18:26 | XMS_ITS | Clinical Summary ---
Author Organization [facility] Address [address] [place] [address] Care Team Providers Care Receiving Checker Name Role Phone Marshall Paige MD Primary Care Provider [phone] Allergies No known active allergies Medications chlorthalidone (HYGROTON) 50 MG tabletIndications:Hyper tension, unspecified type TAKE 1 TABLET BY MOUTH EVERY DAY 90 tablet 1 019 Active insulin aspart (NovoLOG FLEXPEN, insulin aspart,) 100 UNIT/ML prefilled pen injection Novolog Flexpen U-100 Insulin aspart 100 unit/mL (3 mL) subcutaneous Inject by subcutaneous route. Active insulin glargine (insulin glargine, BASAGLAR KWIKPEN,) 100 units/mL prefilled pen injection Basaglar KwikPen U-100 Insulin 100 unit/mL (3 mL) subcutaneous Active donepezil (ARICEPT) 5 MG tablet donepezil 5 mg tablet TAKE 1 TABLET BY MOUTH EVERY DAY IN THE EVENING Active Aspirin Buf,KnUmid-XeEzsv-XdM, 81 MG Tab Take 81 mg by mouth. Active magnesium oxide 400 (241.3 Mg) MG Tab tablet Take 400 mg by mouth daily. Active Cranberry-Vit C-Lactobacillus (RA CRANBERRY SUPPLEMENTS PO) Take by mouth. Activ e umeclidinium-vilanterol (ANORO ELLIPTA) 62.5-25 MCG/INH inhaler Inhale 1 puff daily. Active glyBURIDE (DIAbeta) 5 mg tablet Take 10 mg by mouth every morning with breakfast. Active cholecalciferol (CHOLECALCIFEROL) 25 MCG (1000 UT) tablet Take 1,000 Units by mouth daily. Active CALCIUM CARBONATE-VIT D-MIN PO Take 1 tablet by mouth daily. Active pravastatin (PRAVACHOL) 40 MG tablet Take 40 mg by mouth daily. Active gabapentin (NEURONTIN) 300 MG capsule Take 300 mg by mouth 3 (three) times a day. Active amLODIPine (NORVASC) 5 MG tabletIndications:Hyper tension, unspecified type Take 1 tablet (5 mg total) by mouth daily. 30 tablet 3 022 Active ezetimibe (ZeTIA) 10 MG tabletIndications:Pure hypercholesterolemia TAKE 1 TABLET BY MOUTH EVERY DAY 90 tablet 3 022 Active lisinopril (PRINIVIL,ZeSTRIL) 20 MG tabletIndications:Essen tial hypertension, benign TAKE 1 TABLET BY MOUTH TWICE A DAY 60 tablet 023 Active Social History Tobacco Use Types Packs/Day Years [...] Sign Reading Time Taken Comments Blood Pressure 115/56 11/02/2020 1:31 PM EDT Pulse 67 11/02/2020 1:31 PM EDT Temperature 35.6 ??C (96 ??F) 10/05/2020 11:32 AM EDT Respiratory Rate - - Oxygen Saturation - - Inhaled Oxygen Concentration - - Weight 84.8 kg (187 lb) 11/02/2020 1:29 PM EDT Height 154.9 cm (5' 1 ) 11/02/2020 1:29 PM EDT Body Mass Index 35.33 11/02/2020 1:29 PM EDT Plan of Treatment Health Maintenance Due Date Last Done Comments DTaP/Tdap/Td Vaccines (1 - Tdap) 01/06/1959 Pneumococcal Vaccines 50+ (1 of 1 - PCV) 01/06/1990 Zoster (Shingles) Vaccine (1 of 2) 01/06/1990 DXA Bone Density (Females,Ages 65 and older) 01/06/2005 RSV Vaccine 60 years and older and Patients (1 - 1-dose 75+ series) 01/06/2015 Influenza Vaccine 01/11/2024 03/11/2018 COVID-19 Vaccine ( season) 2024 08/07/2020, 07/09/2020 Lipid Panel Discontinued 08/14/2020, 10/0 06/2018, 01/31/2019, Additional history exists Hepatitis B Vaccines Aged Out No long er eligible based on patient's age to complete this topic Procedures Procedure Name Priority Date/Time Associated Diagnosis Comments LIPID PANEL WITH NONHDL Routine 08/14/2020 8:03 AM EST Hyperlipidemia, unspecified hyperlipidemia type from Last 3 Months or Most Recently Relevant to Health Maintenance Results * Lipid panel with nonHDL (08/14/2020 8:03 AM EST) Cholesterol, Total 143 <200 mg/dL [facility] Cholesterol, HDL 64 > OR = 50 mg/dL [facility] Triglycerides 68 <150 mg/dL [facility] LDL Cholesterol 65 mg/dL (calc) [facility] Comment: Reference range: <100 Desirable range <100 mg/dL for primary prevention; ?? <70 mg/dL for patients with CHD or diabetic patients with > or = 2 CHD risk factors. LDL-C is now calculated using the Marilin calculation, which is a validated novel method providing better accuracy than the Friedewald equation in the estimation of LDL-C. Raji IZAGUIRRE et al. KEVIN. 2013;310(19): 6580-3552 (http://education.[employer].abusix/faq/LBK464) Cholesterol/HDL Ratio 2.2 <5.0 (calc) [facility] Non HDL Chol. (LDL+VLDL) 79 <130 mg/dL (calc) [facility] Comment: For patients with diabetes plus 1 major ASCVD risk factor, treating to a non-HDL-C goal of <100 mg/dL (LDL-C of <70 mg/dL) is considered a therapeutic option. Blood specimen (specimen) Heel structure / Unknown 08/14/2020 8:03 AM EST 08/14/2020 8:05 AM EST Narrative [facility] - 08/14/2020 8:09 PM EST PT REFUSED A1C FASTING:YES PATIENT REFUSED SOME TESTING; PATIENT ENCOURAGED FASTING: YES Toy Eduardo MD LAB BLOOD ORDERABLES Final Re sult [facility] [address] [place] [address], [place] [address] from Last 3 Months or Most Recently Relevant to Health Maintenance Insurance MEDICARE PART A & B [facility] Care Teams Receiving Checker Relationship Specialty Start Date End Date Marshall Paige MD [facility] [address] [address] [facility] - General 10/11/18
--- OUTSIDE RECORDS SUMMARY | 2024-10-07 18:26 | XMS_ITS | Encounter Summary ---
Author Organization [facility], Address [address] [place] [address] Phone Care Team Providers Care Under Seal Operator Name Role Phone Marshall Paige MD Primary Care Provider [phone] Encounter Details Date Type Department Care Team (Late st Contact Info) Description 07/14/2022 Documentation Only [facility] [address] [place] [address] Regina Bae, RN Social History Tobacco Use Types Packs/Day Years Used Date Smoking Tobacco: Never Comments Unknown Sex and Gender Information Value Date Recorded Sex Assigned at Not on file Legal Sex Female 1:32 PM EDT Gender Identity Not on file Sexual Orientation Not on file documented as of this encounter Plan of Treatment Upcoming Encounters Date Type Department Care Team (Late st Contact Info) Description 12/09/2024 4:00 PM EDT Office Visit [facility] [address] [place] [phone] Camilo Craven MD [address] [place] [address] [place] [phone] documented as of this encounter Visit Diagnoses Not on filedocumented in this encounter Care Teams Under Seal Operator Relationship Specialty Start Date End Date Marshall Paige MD [employer] [address] [place] [address] [address] [place] [address] PCP - General Internal Medicine 11/09/21 documented as of this encounter
--- OUTSIDE RECORDS SUMMARY | 2024-10-07 18:26 | XMS_ITS | Encounter Summary ---
Author Organization [facility] Address [address] [place] [address] Care Team Providers Care Community Affairs Manager Name Role Phone Marshall Paige MD Primary Care Provider [phone] Marshall Paige MD Primary Care Provider [phone] Reason for Visit * Reason Comments Medication Refill Encounter Details Date Type Department Care Team (Late st Contact Info) Description 07/10/[address] [facility] Heart & Vascular [place] - Preventative Cardiology [address] [place] [phone] Toy Eduardo MD [address] [place] [address] Medication Refill Social History Tobacco Use Types [...] on filedocumented in this encounter Care Teams Community Affairs Manager Relationship Specialty Start Date End Date Marshall Paige MD [address] [address] PCP - General 10/11/18 Marshall Paige MD [address] [address] PCP - General 10/10/18 documented as of this encounter
--- OUTSIDE RECORDS SUMMARY | 2024-10-07 18:26 | XMS_ITS | Encounter Summary ---
Author Organization [facility] Address [address] [place] [address] Care Team Providers Care Shochet Name Role Phone Marshall Paige MD Primary Care Provider Unavail able Palomo Barreto MD Unavailable [phone] Tanya Adams Unavailable Unavailable Encounter Details Date Type Department Care Team Description 02/24/2016 [facility] [address] [place] [id number] Abstract, Provider Social History Tobacco Use Types Packs/Day Years Used Date Smoking Tobacco: Never Assessed Sex Assigned at Date Recorded Not on file Job Start Date Occupation Industry Not on file Not on file Not on file documented as of this encounter Plan of Treatment Not on file documented as of this encounter Procedures Procedure Name Priority Date/Time Associated Diagnosis Comments OUTSIDE SLEEP STUDY Routine 02/24/2016 documented in this encounter Results * OUTSIDE SLEEP STUDY (02/24/2016) Provider Abstract PULMONOLOGY documented in this encounter Visit Diagnoses Not on filedocumented in this encounter Care Teams Shochet Relationship Specialty Start Date End Date Marshall Paige MD PCP - General Internal Medicine 10/03/18 Palomo Barreto MD [address] [place] [address] [place] [address] Survey Technician Cardiovascular Disease 09/08/21 Tanya Adams PA [address] [place] [address] [place] [address] Specialist Cardiology 12/16/21 documented as of this encounter
--- OUTSIDE RECORDS SUMMARY | 2024-10-07 18:26 | XMS_ITS | Encounter Summary ---
Author Organization [facility] Address [address] [place] [address] Care Team Providers Care Shirt Ironer Supervisor Name Role Phone Marshall Paige MD Primary Care Provider [phone] Marshall Paige MD Primary Care Provider [phone] Encounter Details Date Type Department Care Team (Late st Contact Info) Description 07/01/2016 Scanned Document [facility] Heart & Vascular [place] - Preventative Cardiology [address] [place] [address], [facility] [address] [place] [phone] Toy Eduardo MD [address] [place] [address] Social History Tobacco Use Types Packs/Day Years [...] on filedocumented in this encounter Care Teams Shirt Ironer Supervisor Relationship Specialty Start Date End Date Marshall Paige MD [address] [address] PCP - General 10/11/18 Marshall Paige MD [address] [address] PCP - General 10/10/18 documented as of this encounter
--- OUTSIDE RECORDS SUMMARY | 2024-10-07 18:26 | XMS_ITS | Encounter Summary ---
Author Organization [facility] Address [address] [place] [address] Care Team Providers Care Administrative Services Director Name Role Phone Marshall Paige MD Primary Care Provider Unavail able Palomo Barreto MD Unavailable [phone] Tanya Adams Unavailable Unavailable Encounter Details Date Type Department Care Team Description 09/08/2021 [facility] [address] [place] [id number] [place] [address] Social History Tobacco Use Types Packs/Day Years [...] suspected to have Coronavirus/COVID-19? No / Unsure 09/09/2021 7:34 AM EDT documented as of this encounter Plan of Treatment Not on file documented as of this encounter Visit Diagnoses Not on filedocumented in this encounter Care Teams Administrative Services Director Relationship Specialty Start Date End Date Marshall Paige MD PCP - General Internal Medicine 10/03/18 Palomo Barreto MD [address] [place] [address] [place] [address] Cdl Service Technician Cardiovascular Disease 09/08/21 Tanya Adams PA [address] [place] [address] [place] [address] Specialist Cardiology 12/16/21 documented as of this encounter
--- OUTSIDE RECORDS SUMMARY | 2024-10-07 18:26 | XMS_ITS | Encounter Summary ---
Author Organization [facility] Address [address] [place] [address] Care Team Providers Care Passenger Service Supervisor Name Role Phone Marshall Paige MD Primary Care Provider [phone] Marsahll Paige MD Primary Care Provider [phone] Encounter Details Date Type Department Care Team (Late st Contact Info) Description 07/01/2016 Scanned Document [facility] Heart & Vascular [place] - Preventative Cardiology [address] [place] [address], [facility] [address] [place] [phone] Toy Eduardo MD [address] [place] [address] Social History Tobacco Use Types Packs/Day Years [...] on filedocumented in this encounter Care Teams Passenger Service Supervisor Relationship Specialty Start Date End Date Marshall Paige MD [address] [address] PCP - General 10/11/18 Marshall Paige MD [address] [address] PCP - General 10/10/18 documented as of this encounter
--- OUTSIDE RECORDS SUMMARY | 2024-10-07 18:26 | XMS_ITS | Encounter Summary ---
Author Organization [facility] Address [address] [place] [address] Care Team Providers Care Freight Tallier Name Role Phone Marshall Paige MD Primary Care Provider Unavail able Palomo Barreto MD Unavailable [phone] Tanya Adams Unavailable Unavailable Encounter Details Date Type Department Care Team Description 08/02/2019 [facility] [address] [place] [address] Abstract, Provider Social History Tobacco Use Types Packs/Day Years Used Date Smoking Tobacco: Never Smokeless Tobacco: Never Sex Assigned at Date Recorded Not on file Job Start Date Occupation Industry Not on file Not on file Not on file documented as of this encounter Plan of Treatment Not on file documented as of this encounter Procedures Procedure Name Priority Date/Time Associated Diagnosis Comments EMG INTERNAL/EXTERNAL Routine 08/02/2019 documented in this encounter Results * EMG INTERNAL/EXTERNAL (08/02/2019) Provider Abstract PHYSIATRY documented in this encounter Visit Diagnoses Not on filedocumented in this encounter Care Teams Freight Tallier Relationship Specialty Start Date End Date Marshall Paige MD PCP - General Internal Medicine 10/03/18 Palomo Barreto MD [address] [place] [address] [place] [address] Drag Sawyer Cardiovascular Disease 09/08/21 Tanya Adams PA [address] [place] [address] [place] [address] Specialist Cardiology 12/16/21 documented as of this encounter
--- OUTSIDE RECORDS SUMMARY | 2024-10-07 18:26 | XMS_ITS | Encounter Summary ---
Author Organization [facility] Address [address] [place] [address] Care Team Providers Care Electrical Subcontractor Name Role Phone Marshall Paige MD Primary Care Provider Unavail able Palomo Barreto MD Unavailable [phone] Tanya Adams Unavailable Unavailable Encounter Details Date Type Department Care Team Description 08/17/2020 [facility] [address] [place] [address] Gloria Rodrigo Social History Tobacco Use Types Packs/Day Years [...] Associated Diagnosis Comments OUTSIDE VASCULAR STUDY Routine 08/17/2020 documented in this encounter Results * OUTSIDE VASCULAR STUDY (08/17/2020) Provider Abstract CARDIOLOGY documented in this encounter Visit Diagnoses Not on filedocumented in this encounter Care Teams Electrical Subcontractor Relationship Specialty Start Date End Date Marshall Paige MD PCP - General Internal Medicine 10/03/18 Palomo Barreto MD [address] [place] [address] [place] [address] Ski Guide Cardiovascular Disease 09/08/21 Tanya Adams PA [address] [place] [address] [place] [address] Specialist Cardiology 12/16/21 documented as of this encounter
--- OUTSIDE RECORDS SUMMARY | 2024-10-07 18:26 | XMS_ITS | Encounter Summary ---
Author Organization [facility] Address [address] [place] [address] Phone Care Team Providers Care Sales And Marketing Executive Name Role Phone Marshall Paige MD Primary Care Provider [phone] Encounter Details Date Type Department Care Team (Late Contact Info) Description 11/18/2021 Documentation Only [facility] [address] [place] [address] Marshall Paige MD [address] Social History Tobacco Use Types Packs/Day Years [...] Visit [facility] [address] [place] [address] Camilo Craven MD [address] [place] [address] [place] [address] documented as of this encounter Visit Diagnoses Not on filedocumented in this encounter Care Teams Sales And Marketing Executive Relationship Specialty Start Date End Date Marshall Paige MD [address] [place] [address] PCP - General Internal Medicine 11/09/21 documented as of this encounter
--- OUTSIDE RECORDS SUMMARY | 2024-10-07 18:26 | XMS_ITS ---
Author Name [facility] Organization Unknown History of Medication Use Medication Directions Dispensed Refills Start Date End Date Stat us ezetimibe (ZeTIA) 10 MG tablet TAKE 1 TABLET BY MOUTH EVERY DAY 11/18/2021 active amLODIPine (NORVASC) 5 MG tablet Take 1 tablet (5 mg total) by mouth daily. 07/06/2021 active CALCIUM CARBONATE-VIT D-MIN PO Take 1 tablet by mouth daily. active Cranberry-Vit C-Lactobacillus (RA CRANBERRY SUPPLEMENTS PO) Take by mouth. activ e insulin glargine (insulin glargine, BASAGLAR KWIKPEN,) 100 units/mL prefilled pen injection Basaglar KwikPen U-100 Insulin 100 unit/mL (3 mL) subcutaneous active Problems Problem Status Onset Date Problem Type Date of Resoluti on Source Essential hypertension, benign active EncounterDiagnosisAct HHCCT Care Team Organization Name Specialty Phone Email Start Date End [facility] Marshall Paige Primary Care
--- OUTSIDE RECORDS SUMMARY | 2024-10-07 18:26 | XMS_ITS | Encounter Summary ---
Author Organization [facility] Address [address] [place] [address] Phone Care Team Providers Care Account Technician Name Role Phone Marshall Paige MD Primary Care Provider [phone] Encounter Details Date Type Department Care Team (Late Contact Info) Description 11/18/2021 Documentation Only [facility] [address] [place] [address] Marshall Paige MD [address] Social History Tobacco Use Types Packs/Day [...] Visit [facility] [address] [place] [address] Camilo Craven MD [address] [place] [address] [place] [address] documented as of this encounter Visit Diagnoses Not on filedocumented in this encounter Care Teams Account Technician Relationship Specialty Start Date End Date Marshall Paige MD [address] [place] [address] PCP - General Internal Medicine 11/09/21 documented as of this encounter
--- OUTSIDE RECORDS SUMMARY | 2024-10-07 18:26 | XMS_ITS | Encounter Summary ---
Author Organization [facility] Address [address] [place] [address] Care Team Providers Care Clinical Rn Name Role Phone Marshall Paige MD Primary Care Provider [phone] Encounter Details Date Type Department Care Team (Late st Contact Info) Description 10/12/2018 Scanned Document [facility] Heart & Vascular [place] - Preventative Cardiology [address] [facility], [address] [place] [phone] Provider, MD [facility] [address] [place] [address] Social History Tobacco Use Types Packs/Day Years [...] on filedocumented in this encounter Care Teams Clinical Rn Relationship Specialty Start Date End Date Marshall Paige MD [address] [facility] [address] [place] [address] PCP - General 10/11/18 documented as of this encounter
--- OUTSIDE RECORDS SUMMARY | 2024-10-07 18:27 | XMS_ITS ---
Author Organization [facility], [facility] Address [address] [place] [phone] Care Team Providers Care Sterile Process Coordinator Name Role Phone Marshall Paige Primary Care Provider Bart Whitten Unavailable [phone] REASON FOR VISIT Ramona you 1940 Encounters Encounter Location Date Provider Diagnosis [facility], [address] [phone] 08/12/2024 Bart Forde Plan Of Treatment Next Appt Details Provider Name:Bart mirza, 11/11/2024 02:40:00 PM, [address] [place] [address], [place], [address], Progress Notes * Ramona MANLEYDOB: [birth year] (84 yo F)Acc No.[id number]:08/12/2024 Patient:?Ramona MANLEY :1940???Age:84 Y???Sex:Female Address:[address] [place] [address], [address] * true * Date:? Generated for Printi ng/Faxing/eTransmitting on:?10/07/2024 06:26 PM EDT
--- OUTSIDE RECORDS SUMMARY | 2024-10-07 18:27 | XMS_ITS | Encounter Summary ---
Author Organization [facility] Address [address] [place] [address] Care Team Providers Care Transformer Assembler Name Role Phone Marshall Paige MD Primary Care Provider Unavail able Palomo Barreto MD Unavailable [phone] Tanya Adams Unavailable Unavailable Encounter Details Date Type Department Care Team Description 01/25/2024 Content Architect Report Cardio [facility] [address] [place] [address] [address] [place] [phone] [facility] Social History Tobacco Use Types Packs/Day Years [...] on filedocumented in this encounter Care Teams Transformer Assembler Relationship Specialty Start Date End Date Marshall Paige MD PCP - General Internal Medicine 10/03/18 Palomo Barreto MD [address] [place] [address] [place] [address] [place] [phone] Carbon Lamp Cleaner Cardiovascular Disease 09/08/21 Tanya Adams PA [address] [place] [address] Dr [place] [place] [address] Specialist Cardiology 12/16/21 documented as of this encounter
--- OUTSIDE RECORDS SUMMARY | 2024-10-07 18:27 | XMS_ITS | Clinical Summary ---
Author Organization [facility] Address [address] [place] [address] Care Team Providers Care Fur Puller Name Role Phone Marshall Paige MD Primary Care Provider [phone] Allergies No known active allergies Medications anastrozole (ARIMIDEX) 1 mg Take 1 Tablet by mouth daily. Active aspirin 81 mg EC tablet Take 1 Tablet by mouth daily. 2 Active insulin glargine,hum.rec. anlog (Basaglar KwikPen U-100 Insulin) 100 unit/mL (3 mL) injection pen 32 Units at bedtime. 9 Active carvediloL (COREG) 6.25 mg tablet Take 1 Tablet by mouth 2 times daily. Active chlorthalidone (HYGROTON) 25 mg tablet Take 1 Tablet by mouth daily. Active cholecalciferol (VITAMIN D-3) 25 mcg (1,000 unit) capsule Take 1 Capsule by mouth daily. Active donepeziL (ARICEPT) 5 mg tablet Take 5 mg by mouth at bedtime. Active ezetimibe (ZETIA) 10 mg tablet TAKE 1 TABLET BY MOUTH EVERY DAY 4 Active fluticasone-umecl idinium-vilantero l (Trelegy Ellipta) 200-62.5-25 mcg inhaler Take 100 mg by mouth daily. Active gabapentin (NEURONTIN) 100 mg capsule Take 1 Capsule by mouth daily. Active albuterol HFA (PROAIR HFA ; PROVENTIL HFA ; VENTOLIN HFA) 90 mcg/actuation inhaler Inhale 2 Puffs into the lungs every 4 hours as needed. Active insulin aspart (NovoLOG Flexpen U-100 Insulin) 100 unit/mL (3 mL) injection pen 5 units at breakfast, 5 units at lunch,5 units at dinner 9 Active lisinopriL (PRINIVIL,ZESTRIL ) 20 mg tablet Take 1 Tablet by mouth daily. 9 Active montelukast (SINGULAIR) 10 mg tablet Take 1 Tablet by mouth at bedtime. Active pravastatin (PRAVACHOL) 40 mg tablet Take 40 mg by mouth daily. Active multivit-min/iron /folic acid/K (ADULTS MULTIVITAMIN ORAL) Multiple Vitamin (Multivitamin Adult) Tab Take by mouth daily. Active saccharomyces boulardii (FLORASTOR) 250 mg capsule Take 1 Capsule by mouth daily. Active amLODIPine (NORVASC) 10 mg tablet TAKE 1 TABLET BY MOUTH DAILY. TAKEN AT BREAKFAST 90 tablet 2 5 Active Active Problems Problem Noted Date Diagnosed Date ROSSY (acute kidney injury) ([facility] V24) 09/09/19 22 Chronic venous insufficiency 09/08/2021 Overview (06/21/2024): Last Assessment & Plan: The patient has history of venous insufficiency and she will continue to wear her compression stockings. DM2 (diabetes mellitus, type 2) ([facility] V24, [facility] V28) 09/08/2021 Aortic atherosclerosis ([facility]) 11/27/2018 Carotid stenosis 11/27/2018 Overview (06/21/2024): Last Assessment & Plan: Patient has a history of carotid artery stenosis which has been stable. She recently underwent a carotid artery duplex October 2023 which showed no significant change from prior ultrasound study. She will continue to follow with [facility] vascular surgery services. She will also continue her current medication regimen with aspirin and statin. COPD (chronic obstructive pu lmonary disease) ([facility] V24, [facility] V28) 11/27/2018 DM (diabetes mellitus), type 2 with peripheral vascular complications ([facility] [place]24, [facility] V28) 11/27/2018 Hyperlipidemia 11/27/2018 Overview (06/21/2024): Last Assessment & Plan: Patient has a history of hyperlipidemia as well as a history of carotid artery stenosis. We will update a new fasting lipid panel to reassess her cholesterol control and make any adjustments if necessary. In the meantime, she will continue her current dose of pravastatin and ezetimibe as prescribed. Hypertension 11/27/2018 Overview (06/21/2024): Last Assessment & Plan: Patient's blood pressure is well-controlled today with a reading 118/60. She will continue her current antihypertensive medication regimen as prescribed. Multinodular goiter 11/27/2018 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 Osteoarthritis 11/27/2018 Overview (06/21/2024): Thoracic Spine JOY (dyspnea on exertion) 11/02/2018 Overview (06/21/2024): Last Assessment & Plan: The patient has been experiencing shortness of breath with exertion. Even though her shortness of breath may be due to her COPD, I think that it is reasonable to rule out a cardiac etiology which may be contributing to her symptoms. This is particularly important given her multiple risk factors for CAD. For this reason, will order an echocardiogram to evaluate her LV systolic function, LV diastolic function, and to rule out pulmonary hypertension. We will also order a BNP level. Finally, will order a stress test. Given the patient's chronic low back pain, she will be unlikely to be able to tolerate an exercise protocol. As such, we will order pharmacological nuclear stress test Hoarseness 11/02/2018 JAYLA (obstructive sleep apnea) 11/02/2018 Overview (06/21/2024): CPAP Last Assessment & Plan: The patient has a history of obstructive sleep apnea. She continues on CPAP therapy. The patient is followed by store hand. I encouraged the patient to continue her daily CPAP therapy use. Immunizations Name Administration Dates Next Due Influenza trivalent, 0.5mL, preservative free (Fluarix; FluLaval; Fluzone) ages 6mo and older (Afluria) 3 years and older 08/30/2018 Moderna SARS-CoV-2 COVID-19, mRNA, LNP-S, preservative free 08/07/2020,07/09/2020 Pneumococcal conjugate 13 va lent (Prevnar 13, PCV13) 2mo and older 07/21/2014 Pneumococcal polysaccharide 23 valent (Pneumovax 23) 2yo and older 03/26/2009 Td Tetanus diptheria (Tdvax) 7yo and older 03/26 Tdap Tetanus diptheria acell ular pertussis (Boostrix; Adacel) 7yo and older 08/30/2018 Zoster Live 06/10/2013 Surgical History Surgery Date Site/Laterality Comments COLONOSCOPY PROCEDURE: HISTORICAL COLONOSCOPY Medical History Medical History Date Comments Hypertension 11/27/2018 DX:Hypertension Hyperlipidemia 11/27/2018 DX:Hyperlipidemi a 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 DX:Organi c brain syndrome Carotid stenosis 11/27/2018 DX:Carotid sten osis DM (diabetes mellitus), type 2 with peripheral vascular complications ([facility] [place]24, [facility] [place] V28) 11/27/2018 DX:DM (diabetes mellitus), type 2 with peripheral vascular complications ([facility]) Multinodular goiter 11/27/2018 DX:Multinodu lar goiter Hoarseness 11/02/2018 DX:Hoarseness Dyspnea 11/02/2018 DX:Dyspnea JAYLA (obstructive sleep apnea) 11/02/2018 DX :JAYLA (obstructive sleep apnea); COMMENT: CPAP Aortic atherosclerosis ([facility] V24) 11/27/2018 DX:Aortic atherosclerosis ([facility]) Osteoarthritis 11/27/2018 DX:Osteoarthriti s; COMMENT: Thoracic Spine COPD (chronic obstructive pu lmonary disease) ([facility] V24, [facility] V28) 11/27/2018 DX:COPD (chronic o bstructive pulmonary disease) ([facility]) Chronic venous insufficiency DX: Chronic venous insufficiency ROSSY (acute kidney injury) ([facility]24) DX:ROSSY (acute kidney injury) ([facility]) Closed compression fracture of L2 vertebra ([facility] V24, [facility] V28) 08/14/2020 DX:Closed compress ion fracture of L2 vertebra ([facility]) DM2 (diabetes mellitus, type 2) ([facility] [place] V24, [facility] [place] V28) DX:DM2 (diabetes mellitus, type 2) ([facility]) JOY (dyspnea on exertion) DX:JOY (dyspnea on exertion) Social History Tobacco Use Types Packs/Day Years Used Date Smoking Tobacco: Never Smokeless Tobacco: Never Alcohol Use Standard Drinks/Week Comments Never 0 (1 standard drink = 0.6 oz pur e alcohol) Comments Unknown Sex and Gender Information Value Date Recorded Sex Assigned at Not on file Legal Sex Female 10:31 AM EST Gender Identity Not on file Sexual Orientation Not on file Obstetrics History Last Filed Vital Signs Vital Sign Reading Time Taken Comments Blood Pressure 118/60 11/15/2023 10:16 AM EDT Sitting L Arm Pulse 64 11/15/2023 10:16 AM EDT Temperature - - Respiratory Rate - - Oxygen Saturation - - Inhaled Oxygen Concentration - - Weight 89.9 kg (198 lb 1.6 oz) 11/15/2023 10:16 AM EDT Height 160 cm (5' 3 ) 11/15/2023 10:16 AM EDT Body Mass Index 35.09 11/15/2023 10:16 AM EDT Plan of Treatment Upcoming Encounters Date Type Department Care Team (Late st Contact Info) Description 11/12/2024 8:50 AM EDT Office Visit [facility] [address] [place] [address] [place] [address] Palomo Tobar MD [address] [place] [address] [address] [place] [address] Health Maintenance Due Date Last Done Comments Diabetes: Annual Foot Exam 01/06/1950 Diabetes: Annual Retina Eye Exam 01/06/1950 Zoster Vaccines (2 of 3) 08/05/2013 06/10/2013 RSV Immunization Adult Patients (1 - 1-dose 75+ series) 01/06/2015 COVID-19 Vaccine (3 - Moderna risk series) 09/04/2020 08/07/2020, 07/09/2020 Cholesterol Screening (Lipid Panel) 05/22/2022 Depression Screening 05/22/2022 Diabetes: Blood Sugar Control Test (HGBA1C) 05/22/2022 Falls Risk Assessment 05/22/2022 Osteoporosis Screening (Bone Density Screening) 05/22/2022 Social Influencers of Health Screening 05/22/2022 Medicare Annual Wellness Visit 12/08/2023 12/07/2022 Diabetes: Annual Urine Albumin-Creatinine Ratio (uACR) 12/10/2024 12/11/2023 Influenza Vaccine (Season Ended) 2025 03/13/2022, 03/10/2020, 03/08/2019, Additional history exists Diabetes: Annual GFR (Glomerular Filtration Rate) 02/25/2025 02/26/2024, 02/26/2024 Hypertension/CHF/CAD Annual BMP Blood Test 02/25/2025 02/26/2024, 02/26/2024 DTaP,Tdap,and Td Vaccines (3 - Td or Tdap) 08/30/2028 08/30/2018, 03/26/2009 Pneumococcal Vaccine: 50+ Years Completed 08/19/2021, 07/21/2014, 03/26/2009 HIB Vaccines Aged Out No longer eligi ble based on patient's age to complete this topic HPV Vaccines Aged Out No longer eligi ble based on patient's age to complete this topic Hepatitis A Vaccines Aged Out No long er eligible based on patient's age to complete this topic Hepatitis B Vaccines Aged Out No long er eligible based on patient's age to complete this topic IPV Vaccines Aged Out No longer eligi ble based on patient's age to complete this topic MMR Vaccines Aged Out No longer eligi ble based on patient's age to complete this topic Meningococcal ACWY Vaccine Aged Out N o longer eligible based on patient's age to complete this topic Meningococcal B Vaccine Aged Out No l onger eligible based on patient's age to complete this topic RSV Immunization Patients Under 20 months Aged Out No longer eligible based on patient's age to complete this topic Varicella Vaccines Aged Out No longer eligible based on patient's age to complete this topic Procedures Procedure Name Priority Date/Time Associated Diagnosis Comments ANNUAL BMP BLOOD TEST Routine 02/26/2024 URINE ALBUMIN CREATININE RATIO Routine 12/11/2023 from Last 3 Months or Most Recently Relevant to Health Maintenance Results * Annual BMP Blood Test (02/26/2024) Annual BMP Blood Test abstracted Historical Provider HEALTH MAINTENANCE Final Result * Urine Albumin Creatinine Ratio (12/11/2023) Urine Albumin Creatinine Ratio abstracted Historical Provider HEALTH MAINTENANCE Final Result from Last 3 Months or Most Recently Relevant to Health Maintenance Insurance MEDICARE Care Teams Fur Puller Relationship Specialty Start Date End Date Marshall Paige MD [address] PCP - General Internal Medicine 10/03/18
--- OUTSIDE RECORDS SUMMARY | 2024-10-07 18:27 | XMS_ITS | Continuity of Care Document ---
Author Organization [facility] [address] [facility] [address] [place] [address] Phone [phone] Care Team Providers Care Residential Care Facility Manager Name Role Phone Marshall Paige M.D. Care Team Information Scientific Software Developer [phone] Problems Active Problems Provider Date Essential hypertension Ric Samaniego Onset: 02/11/2022 Multinodular goiter Sherry Senior M.D. Onset: 02/11/2022 Obstructive sleep apnea syndrome Sherry Elliott M.D. Onset: 02/11/2022 Memory impairment Sherry Senior M.D. O nset: 02/11/2022 Dyslipidemia Sherry Senior M.D. Ons et: 02/11/2022 Asthma Sherry Senior M.D. Ons et: 02/11/2022 Chronic obstructive lung disease Sherry Elliott M.D. Onset: 02/11/2022 Carotid artery stenosis Sherry Senior M.D. Onset: 02/11/2022 Type 2 diabetes mellitus Sherry Senior M.D. Onset: 02/11/2022 Neuropathy Sherry Senior M.D. Ons et: 02/11/2022 Chronic kidney disease stage 3 Sherry mosher M.D. Onset: 03/03/2023 Polyp of colon Sherry Senior M.D. Ons et: 03/03/2023 Peripheral venous insufficiency Sherry Alegria M.D. Onset: 03/03/2023 Obesity Sherry Senior M.D. Ons et: 03/03/2023 Hearing loss Sherry Senior M.D. Ons et: 12/04/2023 Social History Type Date Description Comments Sex Unknown Lives With Spouse ETOH Use Denies alcohol use Tobacco Use Start: Unknown Patient has never smoked Allergies and adverse reactions Description No Known Drug Allergies Medications Active Medications SIG Qnty Indications Order ing Provider Date Admelog Nlxaimxg456Vlou/ML Solution Pen-Inject Inject 8 to 18 units three times daily before meals 45ml E11.65 Sherry Senior M.D. 01/12/2024 Fdlxausgrl752ed Capsules take 2 capsules by mouth at bedtime 180caps Sherry Senior M.D. 03/03/2023 BD Ilex0Cpm Use as Directed 4 Times Daily With Insulin Pens 400units E11.8 Sherry Senior M.D. 02/01/2023 Onetouch VerioStrips use 1 test stip twice a day DX:E11.8 200units Sherry Senior M.D. 02/11/2022 Donepezil WSA26mb Tablets Take 1 Tablet By Mouth Every Day In The Evening Unknown Sertraline TJT56tg Tablets Take 1 Tablet By Mouth Every Day For 30 Days Unknown Wubpdiahblzdip6BQ/D ose Powder dissolve one scoop in 6 to 8 oz of water once daily at noon Unknown Trelegy Saqfugt957-05.5-25m cg/Act Aerosol Inhale 1 puff Every Day Unknown Fqdiofbozzy2dp Tablets Take 1 Tablet By Mouth Every Day Unknown Albuterol Sulfate QWO918(90Base) mcg/Act Aerosol use 2 puffs every 4 to 6 hours as needed 6.700gm Sherry Senior M.D. Prodigy No Coding Blood Glucose Test StripsStrips Use To Test Blood Sugar 4 Times A Day. DX:E11.8 Sherry Senior M.D. Onetouch Delica Lancing DevMisc Use 1 Lanet To Skin 4 Times A Day as Directed X 30 Days Sherry Senior M.D. Onetouch Delica Lancets Fine 30G30G Misc Use 1 Lancet To Skin 4 Times A Day as Directed X 30 Days Sherry Senior M.D. BD Pen Needle/Lelia 2ND Gen/32G X 5/32 32G X 4 mm Misc Use 4 Times Daily Sherry Senior M.D. Rywigsfnqm18mz Tablets Take 1 Tablet By Mouth Twice A Day Unknown Basaglar Nckpghs203Tizs/ML Solution Pen-Inject Inject 32 Units Subcutaneously Once A Day AT Bedtime 45ml E11.8 Sherry Senior M.D. Amlodipine Futghrlo19ef Tablets Take 1 Tablet By Mouth Daily. Taken AT Breakfast Tanya Adams PA-C Fnezjneyjlmngl94rp Tablets Take 1 Tablet By Mouth Every Day Marshall Paige M.D. Pravastatin Olsdcw32ia Tablets Take 1 Tablet By Mouth Every Day Marshall Paige M.D. Vital Signs Date Vital Result Comment 08/05/2024 2:35pm BP Systolic 116 mmHg BP Diastolic 50 mmHg Heart Rate 59 /min Height 61.5 inches 5'1.50 Weight 201.12 lb BMI (Body Mass Index) 37.4 kg/m2 Results Test Acquired Date Facility Test Result H/L Range N ote Glucose Fingerstick 08/05/2024 Inhouse Glucose Fingerstick 152 Hemoglobin A1c 08/05/2024 Inhouse Hemoglobin A1c 8.1% Glucose Fingerstick 04/04/2024 Inhouse Glucose Fingerstick 120 Hemoglobin A1c 04/04/2024 Inhouse Hemoglobin A1c 8.2% Glucose Fingerstick 12/04/2023 Inhouse Glucose Fingerstick 198 Hemoglobin A1c 12/04/2023 Inhouse Hemoglobin A1c 8.3% Glucose Fingerstick 07/11/2023 Inhouse Glucose Fingerstick 214 Hemoglobin A1c 07/11/2023 Inhouse Hemoglobin A1c 9.5% Glucose Fingerstick 03/03/2023 Inhouse Glucose Fingerstick 148 Hemoglobin A1c 03/03/2023 Inhouse Hemoglobin A1c 8.0% Glucose Fingerstick 10/31/2022 Inhouse Glucose Fingerstick 154 Hemoglobin A1c 10/31/2022 Inhouse Hemoglobin A1c 8.3% Glucose Fingerstick 06/17/2022 Inhouse Glucose Fingerstick 87 Hemoglobin A1c 06/17/2022 Inhouse Hemoglobin A1c 7.9% Glucose Fingerstick 02/11/2022 Inhouse Glucose Fingerstick 136 Procedures Date Code Description Status 08/05/2024 66186 Glucose Monitoring Interpeta tion And Report Completed 04/04/2024 01342 Glucose Monitoring Interpeta tion And Report Completed 12/04/2023 97197 Glucose Monitoring Interpeta tion And Report Completed 07/11/2023 40364 Glucose Monitoring Interpeta tion And Report Completed 03/03/2023 07409 Glucose Monitoring Interpeta tion And Report Completed 10/31/2022 24323 Glucose Monitoring Interpeta tion And Report Completed 06/17/2022 06620 Glucose Monitoring Interpeta tion And Report Completed 02/11/2022 73858 Glucose Monitoring Interpeta tion And Report Completed Medical Devices Description No Information Available Encounters Type Date Location Provider Dx Diagnosis Office Visit 08/05/2024 2:30p Main Office Sherry Senior M.D. 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 08/05/2024 E11.21 Type 2 diabetes mellitus with diabetic nephropathy Sherry Senior M.D. 08/05/2024 E11.65 Type 2 diabetes mellitus with hyperglycemia Sherry Senior M.D. 08/05/2024 Z79.4 senior care (current) use of i nsulin Sherry Senior M.D. 08/05/2024 E04.2 Nontoxic multinodular goiter Sherry Senior M.D. 08/05/2024 I10 Essential (primary) hyperten carl Sherry Senior M.D. 08/05/2024 N18.30 Chronic kidney d isease, stage 3 unspecified Sherry Senior M.D. Plan of Treatment Future Appointment(s):* 12/04/2024 2:45 pm - Sherry Senior M.D. at Main Office 02/11/2022 - Sherry Senior M.D.* E11.8 Type 2 diabetes mellitus with unspecified complications * I10 Essential (primary) hypertension * N18.30 Chronic kidney disease, stage 3 unspecified * E04.2 Nontoxic multinodular goiter * Functional Status Description No Information Available Mental Status Description No Information Available Referrals Description No Information Available
--- OUTSIDE RECORDS SUMMARY | 2024-10-07 18:27 | XMS_ITS | Encounter Summary ---
Author Organization [facility] Address [address] [place] [address] Care Team Providers Care Public Speaking Professor Name Role Phone Marshall Paige MD Primary Care Provider Unavail able Palomo Barreto MD Unavailable [phone] Tanya Adams Unavailable Unavailable Encounter Details Date Type Department Care Team Description 01/25/2024 School Coordinator Report Cardio [facility] [address] [place] [address] Drive [address] [place] [id number] [facility] Social History Tobacco Use Types Packs/Day Years [...] on filedocumented in this encounter Care Teams Public Speaking Professor Relationship Specialty Start Date End Date Marshall Paige MD PCP - General Internal Medicine 10/03/18 Palomo Barreto MD [address] [place] [address] [place] [address] [phone] Residential Plumber Cardiovascular Disease 09/08/21 Tanya Adams PA [address] [place] [address] Dr [address] [place] [id number] Specialist Cardiology 12/16/21 documented as of this encounter
--- OUTSIDE RECORDS SUMMARY | 2024-10-07 18:27 | XMS_ITS | Encounter Summary ---
Author Organization [facility] Address [address] [place] [address] Care Team Providers Care Launch Commander [employer] Name Role Phone Marshall Paige MD Primary Care Provider Unavail able Palomo Barreto MD Unavailable [phone] Tanya Adams Unavailable Unavailable Reason for Visit * Reason Onset Date Comments APPOINTMENT 10/26/2023 Called patient t o reschedule 11/01/23 appointment with Nathaly Tierney. Encounter Details Date Type Department Care Team Description 10/26/2023 Telephone Cardio [facility] [address] [place] [address] [address] [place] [phone] Palomo Barreto MD [address] [place] [address] Dr [address] [place], [place] [phone] APPOINTMENT (Called patient to reschedule 11/01/23 appointment with Nathaly Tierney.) Social History Tobacco Use Types Packs/Day Years Used Date Smoking Tobacco: Never Smokeless Tobacco: Never Alcohol Use Standard Drinks/Week Comments Never 0 (1 standard drink = 0.6 oz pur e alcohol) Sex Assigned at Date Recorded Not on file Job Start Date Occupation Industry Not on file Not on file Not on file documented as of this encounter Miscellaneous Notes * Telephone Encounter - Graciela Gomez - 10/26/2023 3:26 PM EDT I calleKathleeen and left a voicemail letting her know we had to cancel her 11/01/23 appointment with Nathaly Tierney because he is away. I said in my message that I rescheduled her appointment with Nathaly Tierney to Wednesday, November 15, 2023 at 11:10 AM. appointment reminder mailed. documented in this encounter Plan of Treatment Not on file documented as of this encounter Visit Diagnoses Not on filedocumented in this encounter Care Teams Launch Commander [employer] Relationship Specialty Start Date End Date Marshall Paige MD PCP - General Internal Medicine 10/03/18 Palomo Barreto MD [address] [place] [address] [place] [address] Wire Mill Operator Cardiovascular Disease 09/08/21 Tanya Adams PA [address] [place] [address] [place] [address] Specialist Cardiology 12/16/21 documented as of this encounter
== END 2024-10-07 16:08 | disposition home or self-care (01) ==
LOC: HO.HPS 15:36
PROVIDERS: PCP Internal Medicine; Visit Provider Hospitalist
DX: J44.9 Chronic obstructive pulmonary disease, unspecified (principal); G47.33 Obstructive sleep apnea (adult) (pediatric); Z99.89 Dependence on other enabling machines and devices
CPT/HCPCS: 99214

== ENCOUNTER → 2024-10-07 15:35 | Outpatient (BNVA) | payer MEDICARE, OTHER, SELFPAY | PROVIDERS: PCP Internal Medicine; Visit Provider Hospitalist | DX: J44.9 Chronic obstructive pulmonary disease, unspecified (principal); G47.33 Obstructive sleep apnea (adult) (pediatric); Z99.89 Dependence on other enabling machines and devices | CPT/HCPCS: 99212 ==